=== PATIENT | male | born 1970 | race Caucasian/White ===

== ENCOUNTER → 2018-04-12 10:48 | Outpatient (REF) | payer OTHER, SELFPAY ==
[2018-04-12 14:03] LABS: Amphetamine/Metha Screen,Urine Negative ng/mL (<1000); Barbiturates Screen,Urine Negative ng/mL (<200); Benzodiazepines Screen,Urine Negative ng/mL (<200); Cannabinoid Screen,Urine Positive ng/mL (<50); Cocaine Screen,Urine Negative ng/mL (<300); Methadone Screen,Urine Negative ng/mL (<300); Opiate Screen,Urine Negative ng/mL (<300); Phencyclidine Screen,Urine Negative ng/mL (<25)
== END ==
LOC: LAB 10:48
PROVIDERS: Visit Provider Emergency Medicine
DX: Z79.899 Other long term (current) drug therapy (principal)
CPT/HCPCS: 80305

== ENCOUNTER → 2018-07-11 19:48 | Outpatient (CLI) | payer OTHER, SELFPAY ==
[2018-07-11 22:22] LABS: Amphetamine/Metha Screen,Urine Negative ng/mL (<1000); Barbiturates Screen,Urine Negative ng/mL (<200); Benzodiazepines Screen,Urine Negative ng/mL (<200); Cannabinoid Screen,Urine Negative ng/mL (<50); Cocaine Screen,Urine Negative ng/mL (<300); Methadone Screen,Urine Negative ng/mL (<300); Opiate Screen,Urine Negative ng/mL (<300); Phencyclidine Screen,Urine Negative ng/mL (<25)
== END ==
PROVIDERS: Visit Provider Emergency Medicine
DX: Z79.899 Other long term (current) drug therapy (principal)
CPT/HCPCS: 80305

== ENCOUNTER → 2018-08-08 17:41 | Outpatient (CLI) | payer OTHER, SELFPAY ==
[2018-08-08 21:45] LABS: Amphetamine/Metha Screen,Urine Negative ng/mL (<1000); Barbiturates Screen,Urine Negative ng/mL (<200); Benzodiazepines Screen,Urine Negative ng/mL (<200); Cannabinoid Screen,Urine Negative ng/mL (<50); Cocaine Screen,Urine Negative ng/mL (<300); Methadone Screen,Urine Negative ng/mL (<300); Opiate Screen,Urine Positive ng/mL (<300); Phencyclidine Screen,Urine Negative ng/mL (<25)
== END ==
PROVIDERS: Visit Provider Nurse Practitioner Family
DX: Z79.899 Other long term (current) drug therapy (principal)
CPT/HCPCS: 80305

== ENCOUNTER → 2018-09-08 13:52 | Outpatient (CLI) | payer OTHER, SELFPAY ==
[2018-09-08 15:29] LABS: Amphetamine/Metha Screen,Urine Negative ng/mL (<1000); Barbiturates Screen,Urine Negative ng/mL (<200); Benzodiazepines Screen,Urine Negative ng/mL (<200); Cannabinoid Screen,Urine Negative ng/mL (<50); Cocaine Screen,Urine Negative ng/mL (<300); Methadone Screen,Urine Negative ng/mL (<300); Opiate Screen,Urine Positive ng/mL (<300); Phencyclidine Screen,Urine Negative ng/mL (<25)
== END ==
PROVIDERS: Visit Provider Emergency Medicine
DX: Z79.899 Other long term (current) drug therapy (principal)
CPT/HCPCS: 80305

== ENCOUNTER 2020-01-19 13:30 | Emergency (ER) | payer MEDICAID, SELFPAY ==
[2020-01-19 13:31] VITALS: BP 140/98; PULSE 96; RESP 18; TEMP 36.7; O2SAT 99; BMI 32.5
--- NOTE | 2020-01-19 14:15 | HMH.EDUTC ---
[facility] Disposition Clinical Impression: Dental abscess Disposition: Home, Self-Care Condition on Discharge: Good Instructions: Tooth Abscess, Amoxicillin and Clavulanic Acid Additional Instructions: Use dental balls instructed in [facility] earlier today Take medication as prescribed *Follow up with Dentist as soon as possible for evaluation and treatment of tooth Return if needed Straight to ER if any life threatening symptoms Prescriptions: Ibuprofen [Ibuprofen 800mg Tablet] 800 mg PO Q8HP PRN #20 tab PRN Reason: Moderate Pain Transmission Status: Pending to [facility] Amoxicillin/Potassium Clav [Augmentin 875-125 Tablet] 1 tab PO Q12H 7 Days #14 tab Transmission Status: Pending to [facility] Referrals: Provider,Referral, [Primary Care Provider] - As needed Sridhar Bailey [Referring] - Time of Disposition: 14:20 Medical Decision Making - Ghassan Inquiry Pt receiving controlled substance: No Ghassan was queried for this patient: No Vital Signs: 01/19/20 13:31 Temperature 98.1 F Temperature Source Oral Pulse Rate [Radial] 96 H Respiratory Rate 18 Blood Pressure [Right Arm] 140/98 H Blood Pressure Mean [Right Arm] 112 Blood Pressure Source [Right Arm] Automatic Cuff Blood Pressure Position [Right Arm] Sitting 02 Sat by Pulse Oximetry 99 Oxygen Delivery Method Room Air [facility] HPI - General Stated complaint: lip/face swollen possible dental issue Time Seen by Provider: 01/19/20 14:15 Mode of Arrival: Ambulatory Source of Information: Patient Limitations: No Limitations Description of Symptoms (Recalled from Triage Doc. by RN): Swelling in face with dental pain HEENT Symptoms (Recalled from RN notes): Yes Resp Symptoms (Recalled from RN notes): No Skin Symptoms (Recalled from RN notes): No MS Symptoms (Recalled from RN notes): No Functional Status (Recalled from RN notes): wnl - History of Present Illness Provider Complaint: Patient states that he was in an accident a couple of months ago and broke his tooth States that this morning he woke up with the right side of his face swollen and having pain in that tooth thinks he has an abscess State that he wasnt able to get into the dentist so he came here to get antibiotics - Related Data Previous Rx's Medication Instructions Recorded Albuterol Sulfate [Albuterol HFA 1 - 2 puffs IH Q4-6H PRN #1 inh 07/23/19 Inhaler] Azithromycin [Z-Trevor 250mg Tab*] 250 mg PO UD DOSE PK #6 tab 07/23/19 Benzonatate [Tessalon Perle 100mg 100 mg PO TIDP PRN #30 cap 07/23/19 Cap] methylPREDNISolone [Medrol] 4 mg PO DIRECTED 6 Days #21 07/23/19 tab.ds.pk Amoxicillin/Potassium Clav 1 tab PO Q12H 7 Days #14 tab 01/19/20 [Augmentin 875-125 Tablet] Ibuprofen [Ibuprofen 800mg 800 mg PO Q8HP PRN #20 tab 01/19/20 Tablet] Allergies Allergy/AdvReac Type Severity Reaction Status Date / Time tramadol [TRAMADOL] Allergy Unknown Verified 01/03/19 08:51 - Worker's Comp Is this a Worker's Comp case?: No [facility] History - Hepatitis A Screen Drug use history?: No High risk sexual behaviors?: No History of sexually transmitted infection?: No Currently employed?: No Childcare worker?: No Do you have indoor plumbing?: Yes Do you have electricity?: Yes Attestation statement:: This patient has been screened for Hepatitis A risk factors. I have reviewed the patient's past medical history: Yes Medical History: Reports:: Anxiety, Asthma, Cardiomyopathy, Depression, Gastroesophageal Reflux Disease(GERD), Hyperlipidemia, Hypertension, Ulcer Denies:: Cancer, Diabetes Mellitus Type 1, Diabetes Mellitus Type 2, MRSA Laterality Cases: Bilateral: Arthroscopy Knee, Carpal Tunnel Release, Myringotomy (Ear Tubes), Tonsillectomy Other Surgeries: Yes: Cardiac Catheterization, Other Amputation: No Fractures: No Comment: BACK SURGERY, TUBES IN EARS,KNEE SURGERY,WRIST CARPAL TUNNEL, MRSA RT LEG, HEART CATH - Social History Education
[2020-01-19 14:34] VITALS: BP 140/98; PULSE 96; RESP 18; TEMP 36.7; O2SAT 99
== END 2020-01-19 14:35 | disposition home or self-care (01) ==
PROVIDERS: Emergency Provider Nurse Practitioner
DX: K04.7 Periapical abscess without sinus (principal); F41.8 Other specified anxiety disorders; K21.9 Gastro-esophageal reflux disease without esophagitis; E78.5 Hyperlipidemia, unspecified; I10 Essential (primary) hypertension; I42.8 Other cardiomyopathies; Z88.8 Allergy status to other drugs, medicaments and biological substances; Z79.899 Other long term (current) drug therapy
CPT/HCPCS: 99201

== ENCOUNTER 2020-09-19 18:19 | Emergency (ER) | payer OTHER, SELFPAY ==
[2020-09-19 18:35] VITALS: BP 170/114; PULSE 100; RESP 14; TEMP 36.2; O2SAT 99; BMI 31.1
--- NOTE | 2020-09-19 18:51 | HMH.EDUTC ---
[facility] [place] Clinical Impression: Exposure to COVID-19 virus Asthma exacerbation Qualifiers: Asthma severity: unspecified severity Asthma persistence: unspecified Qualified Code(s): J45.901 - Unspecified asthma with (acute) exacerbation Disposition: Home, Self-Care Condition on Discharge: Good Instructions: DI for Asthma -- Adult, Preventing the Spread of Coronavirus Discharge Instructions Additional Instructions: Drink plenty of fluids. Take tylenol for pain or fever. Return if you begin to have difficulty breathing. Follow up with your regular doctor. GO TO THE ER FOR ANY WORSENING SYMPTOMS Prescriptions: Albuterol Sulfate [Albuterol Sulfate Hfa] 2 puffs IH Q6HP PRN 30 Days #1 hfa.aer.ad PRN Reason: Shortness Of Breath Transmission Status: Received by [facility] predniSONE [Prednisone 20mg Tab] 20 mg PO BID 5 Days #10 tab Transmission Status: Received by [facility] Benzonatate [Tessalon Perle 100mg Cap] 100 mg PO TIDP PRN #30 cap PRN Reason: Cough Transmission Status: Received by [facility] Azithromycin [Z-Trevor 250mg Tab*] 250 mg PO UD DOSE PK #6 tab Transmission Status: Received by [facility] Referrals: Shan Seo [Primary Care Provider] - Time of Disposition: 19:01 Medical Decision Making - Medical Records Medical records reviewed: No: I reviewed the patient's medical records. - Ghassan Inquiry Pt receiving controlled substance: No Vital Signs: 09/19/20 18:35 09/19/20 19:03 Temperature 97.1 F L 97.1 F L Temperature Source Oral Pulse Rate 100 H Pulse Rate [Right Brachial] 100 H Respiratory Rate 14 14 Blood Pressure 170/114 H Blood Pressure [Right Arm] 170/114 H Blood Pressure Mean [Right Arm] 132 Blood Pressure Source [Right Arm] Automatic Cuff Blood Pressure Position [Right Arm] Sitting 02 Sat by Pulse Oximetry 99 Oxygen Delivery Method Room Air Orders (Tests/Meds): ORDERS Category Date Time Status Covid-19 Nasal PCR ([facility]) Routine Lab 09/19/20 18:30 Received [facility]PI - General Stated complaint: Coughing; wants Covid Test Time Seen by Provider: 09/19/20 18:52 - History of Present Illness Provider Complaint: He states that he has been having a cough and chest congestion for the past 3 days. He has also had a scratchy sore throat. He denies any known exposure to covid-19. He denies any fever/chill/body aches. He has a history of asthma, so he is worried about his chest congestion. - Related Data Previous Rx's Medication Instructions Recorded Albuterol Sulfate [Albuterol 2 puffs IH Q6HP PRN 30 Days #1 09/19/20 Sulfate Hfa] hfa.aer.ad Azithromycin [Z-Trevor 250mg Tab*] 250 mg PO UD DOSE PK #6 tab 09/19/20 Benzonatate [Tessalon Perle 100mg 100 mg PO TIDP PRN #30 cap 09/19/20 Cap] predniSONE [Prednisone 20mg 20 mg PO BID 5 Days #10 tab 09/19/20 Tab] Allergies Allergy/AdvReac Type Severity Reaction Status Date / Time tramadol [TRAMADOL] Allergy Unknown Verified 01/03/19 08:51 [facility] History - Hepatitis A Screen Attestation statement:: This patient has been screened for Hepatitis A risk factors. I have reviewed the patient's past medical history: Yes Medical History: Reports:: Anxiety, Asthma, Cardiomyopathy, Depression, Gastroesophageal Reflux Disease(GERD), Hyperlipidemia, Hypertension, Ulcer Denies:: Cancer, Diabetes Mellitus Type 1, Diabetes Mellitus Type 2, MRSA Laterality Cases: Bilateral: Arthroscopy Knee, Carpal Tunnel Release, Myringotomy (Ear Tubes), Tonsillectomy Other Surgeries: Yes: Cardiac Catheterization, Other Amputation: No Fractures: No Comment: BACK SURGERY, TUBES IN EARS,KNEE SURGERY,WRIST CARPAL TUNNEL, MRSA RT LEG, HEART CATH - Social History Smoking Status: Never smoker Tobacco Type: cigarettes Alcohol Intake: never Substance Use Type: denies use Occupational Status: employed - Psychiatric History Pschychiatric H
[2020-09-19 19:03] VITALS: BP 170/114; PULSE 100; RESP 14; TEMP 36.2; O2SAT 99
== END 2020-09-19 19:05 | disposition home or self-care (01) ==
PROVIDERS: Emergency Provider Nurse Practitioner Family; PCP Family Medicine
DX: Z20.822 Contact with and (suspected) exposure to COVID-19 (principal); E78.5 Hyperlipidemia, unspecified; F41.8 Other specified anxiety disorders; I10 Essential (primary) hypertension; K21.9 Gastro-esophageal reflux disease without esophagitis; Z79.899 Other long term (current) drug therapy
CPT/HCPCS: 99202; G0463; U0003

== ENCOUNTER → 2021-09-03 09:35 | Outpatient (CLI) | payer OTHER, SELFPAY | PROVIDERS: PCP Emergency Medicine; Visit Provider Nurse Practitioner | DX: Z20.822 Contact with and (suspected) exposure to COVID-19 (principal) | CPT/HCPCS: C9803; U0003; U0005 ==

== ENCOUNTER → 2021-09-04 19:16 | Outpatient (CLI) | payer OTHER, SELFPAY ==
[2021-09-04 19:17] LABS: Adenovirus,PCR Not Detected (NotDetected); Bordetella Pertussis Not Detected (NotDetected); Chlamydophila Pneumoniae, PCR Not Detected (NotDetected); Coronavirus 19, PCR Not Detected (NotDetected); Coronavirus 229E Not Detected (NotDetected); Coronavirus NL63 Not Detected (NotDetected); Coronavirus OC43 Not Detected (NotDetected); Coronovirus HKU1,PCR Not Detected (NotDetected); Human Metapneumovirus Not Detected (NotDetected); Influenza A, PCR Not Detected (NotDetected); Influenza AH1, 2009 Not Detected (NotDetected); Influenza AH1, PCR Not Detected (NotDetected); Influenza AH3,PCR Not Detected (NotDetected); Influenza B, PCR Not Detected (NotDetected); Mycoplasma Pneumoniae, PCR Not Detected (NotDetected); Parainfluenza 1, PCR Not Detected (NotDetected); Parainfluenza 2, PCR Not Detected (NotDetected); Parainfluenza 3, PCR Not Detected (NotDetected); Parainfluenza 4, PCR Not Detected (NotDetected); Respiratory Syncytial Virus Not Detected (NotDetected); Rhinovirus/Enterovirus Not Detected (NotDetected)
== END ==
PROVIDERS: Visit Provider Nurse Practitioner Family
DX: Z20.822 Contact with and (suspected) exposure to COVID-19 (principal); J02.9 Acute pharyngitis, unspecified
CPT/HCPCS: 87581; 87632; 87798; C9803; U0003; U0005

== ENCOUNTER 2021-12-17 08:19 | Emergency (ER) | payer OTHER, SELFPAY ==
--- NOTE | 2021-12-17 08:18 | ECG_ITS ---
APPROVED REPORT Exam: Resting ECG HR:87 bpm ECG Measurements Heart Rate 87 AXES MT 153 P 52 QRSd 119 QRS -3 QT 380 T 2 QTc 424 Conclusion SINUS RHYTHM INCOMPLETE RIGHT BUNDLE BRANCH BLOCK [90+ ms QRS DURATION, TERMINAL R IN V1/V2, 40+ ms S IN I/aVL/V4/V5/V6] POSSIBLE LEFT VENTRICULAR HYPERTROPHY [VOLTAGE CRITERIA PLUS LAE OR QRS WIDENING] MINIMAL ST DEPRESSION [0.025+ mV ST DEPRESSION] ABNORMAL ECG UNCONFIRMED REPORT Electronically signed by : Ruben Killian MD 12/18/2021 08:11:05
[2021-12-17 08:20] VITALS: BP 162/110; PULSE 92; RESP 20; TEMP 36.4; O2SAT 98; BMI 29.5
--- NOTE | 2021-12-17 08:22 | PC.NURSE ---
OLIVA Ashby at
[2021-12-17 08:28] VITALS: BP 133/96; BP 155/108; PULSE 103; PULSE 94
--- NOTE | 2021-12-17 08:28 | XR_ITS ---
FINAL REPORT CLINICAL HISTORY: CHEST PAIN COMPARISON: July 23, 2019 FINDINGS: The heart size is normal. The mediastinum is normal. There is a loop recorder device. There are mild chronic changes in the lung bases. There are no pleural effusions. There is no pneumothorax. There is no osseous abnormality. IMPRESSION: No acute cardiopulmonary process Reviewed, Interpreted and Dictated by Baldomero Wright MD Transcribed by Kiko Hoyos Authenticated by Baldomero Wright MD on 12/17/2021 09:33:12 AM [facility]
--- NOTE | 2021-12-17 08:28 | PC.NURSE ---
ED MD at
--- NOTE | 2021-12-17 08:31 | HMH.EDCP ---
ED Disposition Clinical Impression: Atypical chest pain Disposition: Home, Self-Care Condition on Discharge: Good Instructions: DI for Atypical Chest Pain Additional Instructions: follow up cardiology and PCP, return here for any worseing condition Referrals: Provider,Kori, [Primary Care Provider] - Franky Cowan MD [Staff Physician] - Lito Allen MD [Staff Physician] - - Critical Care Critical Care Time: No Attestation: On 12/17/21, the high probability of a clinically significant, sudden or life threatening deterioration of the following system(s) required my full and direct attention, intervention and personal management. The time I documented below is in addition to time spent performing reported procedures but includes the following listed in this critical care notation. Medical Decision Making - Medical Records Medical records reviewed: Yes: I reviewed the patient's medical records. - Ghassan Inquiry Pt receiving controlled substance: No Vital Signs: 12/17/21 08:20 12/17/21 08:28 12/17/21 09:09 Temperature 97.6 F Temperature Source Oral Pulse Rate 74 Pulse Rate [Orthostatic Lying] 94 H Pulse Rate [Orthostatic Standing] 103 H Pulse Rate [Radial] 92 H Respiratory Rate 20 14 Blood Pressure 147/92 H Blood Pressure [Orthostatic Lying] 155/108 H Blood Pressure [Orthostatic Standing] 133/96 H Blood Pressure [Right Arm] 162/110 H Blood Pressure Mean [Right Arm] 127 Blood Pressure Source Blood Pressure Position Blood Pressure Position [Right Arm] Sitting 02 Sat by Pulse Oximetry 98 97 Oxygen Delivery Method Room Air Room Air 12/17/21 10:08 12/17/21 10:42 12/17/21 11:49 Temperature 98 F Temperature Source Oral Pulse Rate 76 63 78 Pulse Rate [Orthostatic Lying] Pulse Rate [Orthostatic Standing] Pulse Rate [Radial] Respiratory Rate 14 14 16 Blood Pressure 139/99 H 155/97 H 150/100 H Blood Pressure [Orthostatic Lying] Blood Pressure [Orthostatic Standing] Blood Pressure [Right Arm] Blood Pressure Mean [Right Arm] Blood Pressure Source Automatic Cuff Automatic Cuff Blood Pressure Position Sitting Sitting Blood Pressure Position [Right Arm] 02 Sat by Pulse Oximetry 93 L 98 Oxygen Delivery Method Room Air Room Air Room Air - Lab Data Lab Results 12/17/21 08:26: WBC 7.9, RBC 5.02, Hgb 15.2, Hct 43.4, MCV 86.5, MCH 30.3, MCHC 35.0, RDW 12.5, Plt Count 277, MPV 11.5 H, Neut % (Auto) 59.7, Lymph % (Auto) 27.0, Gosper % (Auto) 9.5 H, Eos % (Auto) 2.7, Baso % (Auto) 0.8, Neut # (Auto) 4.7, Lymph # (Auto) 2.1, Gosper # (Auto) 0.8, Eos # (Auto) 0.2, Baso # (Auto) 0.1 12/17/21 08:26: Sodium 134 L, Potassium 3.5, Chloride 101, Carbon Dioxide 24, Anion Gap 12.5, BUN 19, Creatinine 1.10, Estimated Creat Clear 112, Estimated GFR 71, Est GFR ( Amer) 86, Glucose 123 H, Calcium 9.7, Troponin I < 0.01 12/17/21 10:32: Troponin I < 0.01 Result diagrams: 12/17/21 08:26 12/17/21 08:26 Orders (Tests/Meds): ED MEDICATIONS Discontinued Medications Generic Name Dose Route Start Last Admin Trade Name Markq PRN Reason Stop Dose Admin Aspirin 324 mg 12/17/21 08:31 12/17/21 08:41 Aspirin 81mg Chewable Tablet PO 12/17/21 08:32 324 mg ONCE ONE Administration Lactated Ringer's 1,000 mls @ 999 mls/hr 12/17/21 08:30 12/17/21 08:39 Lactated Ringer's 1000 Ml Bag IV 12/17/21 09:30 999 mls/hr .Q1H1M JASON Administration - ECG Data Tracing #1 I reviewed this ECG and interpreted as documented below: ekg by me nsr, irbbb, poss lvh, non spec st changes Medical Decision Narrative: 1141am reeval appears well, no cp here, ok wit plan to f/.u cardiology and pcp Chest Pain HPI - General Chief Complaint: Chest Pain Stated Complaint: CP/dizziness Time Seen by Provider: 12/17/21 09:00 Mode of Arrival: Ambulatory Limitations: No Limitations Description of Symptoms (Recalled from ER Triage Doc. by RN): TO E
--- NOTE | 2021-12-17 08:35 | PC.NURSE ---
Notified radiology of chest xray
--- NOTE | 2021-12-17 08:42 | PC.NURSE ---
OLIVA Ashby at
--- NOTE | 2021-12-17 09:00 | PC.NURSE ---
per lab staff pt cbc has to be sent out for analysis r/t our analyzer is down, results will be delayed. YAMILETH ENRIQUEZ has been notified
[2021-12-17 09:08] LABS: Chloride 101 mmol/L (98-107); Potassium 3.5 mmoL/L (3.5-5.1); Sodium 134 mmol/L (136-145)
[2021-12-17 09:09] VITALS: BP 147/92; PULSE 74; RESP 14; O2SAT 97
[2021-12-17 09:11] LABS: Anion Gap 12.5 mEq/L (5-15); Blood Urea Nitrogen 19 mg/dl (9-20); Calcium 9.7 mg/dl (8.4-10.2); Carbon Dioxide 24 mmol/L (22.0-30.0); Creatinine Clearance Estimated 112 mL/min (50-200); Estimated Glomerular Filt Rate 71 ml/min (>60); GFR (African American) 86 ML/MIN (>60); Glucose 123 mg/dl (74-100)
[2021-12-17 09:26] LABS: Troponin I < 0.01 ng/ml (0.00-0.034)
--- NOTE | 2021-12-17 09:43 | PC.NURSE ---
Dr. Naik reports he wants patient to have 2 hour troponin
[2021-12-17 10:08] VITALS: BP 139/99; PULSE 76; RESP 14; O2SAT 93
--- NOTE | 2021-12-17 10:08 | PC.NURSE ---
patient is resting at this time; no needs
--- NOTE | 2021-12-17 10:34 | PC.NURSE ---
2nd troponin sent to lab
[2021-12-17 10:42] VITALS: BP 155/97; PULSE 63; RESP 14; O2SAT 98
--- NOTE | 2021-12-17 11:19 | PC.NURSE ---
Contacting lab regarding patients 2nd troponin result; spoke with Jazmyn and she states they are just now running the specimen
[2021-12-17 11:32] LABS: Hematocrit 43.4 % (42.0-52.0); Hemoglobin 15.2 g/dL (14.1-18.0); Mean Corpuscular Volume 86.5 fl (80-94); Red Blood Count 5.02 M/mm3 (4.60-6.20)
[2021-12-17 11:33] LABS: Basophils # 0.1 K/mm3 (0-0.2); Basophils % 0.8 % (0.1-2.0); Eosinophils # 0.2 K/mm3 (0.0-0.4); Eosinophils % 2.7 % (0.1-12.0); Lymphocytes # 2.1 K/mm3 (0.7-4.5); Mean Corpuscular Hemoglobin 30.3 pg (27.0-31.2); Mean Platelet Volume 11.5 fl (7.4-10.4); Monocytes # 0.8 K/mm3 (0.1-1.0); Monocytes % 9.5 % (1.7-9.3); Neutrophils # 4.7 K/mm3 (1.8-7.8); Neutrophils % 59.7 % (37.0-80.0); Platelet Count 277 K/mm3 (142-424); Red Cell Distribution Width 12.5 % (11.5-17.5)
[2021-12-17 11:34] LABS: White Blood Count 7.9 K/mm3 (4.8-10.8)
--- NOTE | 2021-12-17 11:34 | PC.NURSE ---
mitzi in lab states waiting on a corrected report from [facility] on pts cbc, states they were sent a report with incorrect on it for pt.
[2021-12-17 11:38] LABS: Troponin I < 0.01 ng/ml (0.00-0.034)
--- NOTE | 2021-12-17 11:39 | PC.NURSE ---
ED MD at speaking with patient on update of POC
[2021-12-17 11:49] VITALS: BP 150/100; PULSE 78; RESP 16; TEMP 36.6; O2SAT 98
== END 2021-12-17 11:51 | disposition home or self-care (01) ==
PROVIDERS: Emergency Provider Emergency Medicine
DX: R07.89 Other chest pain (principal); R42 Dizziness and giddiness; M79.602 Pain in left arm; R06.02 Shortness of breath; R61 Generalized hyperhidrosis; R11.0 Nausea; I10 Essential (primary) hypertension; K21.9 Gastro-esophageal reflux disease without esophagitis; E78.5 Hyperlipidemia, unspecified; L98.499 Non-pressure chronic ulcer of skin of other sites with unspecified severity; J45.909 Unspecified asthma, uncomplicated; F32.A Depression, unspecified; F41.9 Anxiety disorder, unspecified; Z79.51 Long term (current) use of inhaled steroids; Z88.6 Allergy status to analgesic agent; Z82.49 Family history of ischemic heart disease and other diseases of the circulatory system; Z83.438 Family history of other disorder of lipoprotein metabolism and other lipidemia
CPT/HCPCS: 71045; 80048; 84484; 85025; 93005; 99285

== ENCOUNTER 2025-05-09 07:03 | Observation (INO) | payer OTHER, SELFPAY ==
[2025-05-09] VITALS (43 sets, daily range): BP systolic 82–157; BP diastolic 65–109; PULSE 53–195; RESP 10–27; TEMP 36.7–37; O2SAT 92–100; BMI 32.5; BMI 32.7
--- NOTE | 2025-05-09 07:01 | ECG_ITS ---
APPROVED REPORT Exam: Resting ECG HR:198 bpm ECG Measurements Heart Rate 198 AXES QRSd 115 QRS -24 QT 226 T 94 QTc 325 Conclusion ATRIAL FLUTTER/TACHYCARDIA WITH RAPID VENTRICULAR RESPONSE BORDERLINE LEFT AXIS DEVIATION [QRS AXIS < -20] INCOMPLETE RIGHT BUNDLE BRANCH BLOCK [90+ ms QRS DURATION, TERMINAL R IN V1/V2, 40+ ms S IN I/aVL/V4/V5/V6] NONSPECIFIC ST & T-WAVE ABNORMALITY CRITICAL TEST RESULT INTERPRETATION BASED ON A DEFAULT AGE OF 40 YEARS Electronically signed by : ROSENDA GRIER, 05/12/2025 08:38:55
[2025-05-09] MEDS: ADENOSINE 6MG/2ML VIAL 6 MG IV (07:07)
[2025-05-09] MEDS: ADENOSINE 6MG/2ML VIAL 12 MG IV (07:13)
--- NOTE | 2025-05-09 07:22 | CT_ITS ---
FINAL REPORT TECHNIQUE: Thin section axial CT with contrast with multiplanar reconstruction This study was performed with techniques to keep radiation doses as low as reasonably achievable, (ALARA). Individualized dose reduction techniques using automated exposure control or adjustment of mA and/or kV according to the patient''s size were employed. CLINICAL HISTORY: chest pain with a heart rate of 200 COMPARISON: none FINDINGS: Pulmonary vessels enhance in normal fashion without evidence of embolism. Thoracic aorta is adequately opacified to evaluate for dissection but there is no evidence of aneurysm. No pulmonary mass or infiltrate is present. No evidence of pneumonia. There is no significant pleural effusion. There is no significant pericardial effusion. Mild scattered adenopathy. There are mildly enlarged lymph nodes seen in the prevascular space and subcarinal region. IMPRESSION: No evidence of pulmonary embolism. No acute lung disease. Mild nonspecific adenopathy. Reviewed, Interpreted and Dictated by Asher Urbina MD Transcribed by Silvina Gonzalez Authenticated and . [facility]
--- OUTSIDE RECORDS SUMMARY | 2025-05-09 07:24 | XMS_ITS | Clinical Summary ---
Author Organization Healthcare Address [address] [place] [address] Care Team Providers Care Curriculum Developer Name Role Phone Jan Lara MD Primary Care Provider + [phone] Family History Medical History Relation Name Comments Other cancer Other 1 Heart Problem Other 2 Relation Name Status Comments Other 1 Other 2 Social History Tobacco Use Types Packs/Day Years Used Date Smoking Tobacco: Never Sex and Gender Information Value Date Recorded Sex Assigned at Not on file Legal Sex Male 7:36 PM EDT Gender Identity Not on file Sexual Orientation Not on file Last Filed Vital Signs Vital Sign Reading Time Taken Comments Blood Pressure - - Pulse - - Temperature - - Respiratory Rate - - Oxygen Saturation - - Inhaled Oxygen Concentration - - Weight 113 kg (250 lb) 01/26/2016 2:15 PM EDT Height 180.3 cm (5' 11 ) 01/26/2016 2:15 PM EDT Body Mass Index 34.87 01/26/2016 2:15 PM EDT Plan of Treatment Not on file Care Teams Curriculum Developer Relationship Specialty Start Date End Date Jan Lara MD [address] [place] [address] PCP - General 01/02/21
--- NOTE | 2025-05-09 07:26 | ED_ITS ---
Discharge Plan Disposition Patient Disposition: Admitted Prescriptions Prescriptions: No Action azithromycin 250 mg tablet 250 mg PO QDAY 5 Days Qty: 6 0RF Rx Instructions: ii tabs day one and i tab days 2-5 albuterol sulfate 90 mcg/actuation HFA aerosol inhaler 2 puff INHALATION Q6H PRN (Reason: resp infection) 10 Days Qty: 6.7 0RF Rx Instructions: administer with spacer benzonatate 200 mg capsule 200 mg PO TID PRN (Reason: cough) 7 Days Qty: 21 0RF Referrals Follow up/Referrals: Provider,Referral, MD [Primary Care Provider, Medical] - See instructions Clinical Impressions Clinical Impression: Atrial fibrillation with RVR, Adenopathy, Elevated troponin Print Language Print Language: Maltese Discharge ED Provider: Savage Perrin HPI General Chief Complaint: Chest Pain Stated Complaint: chest pain Time Seen by Provider: 05/09/25 07:03 Mode of Arrival: Ambulatory Source of Information: Patient Description of Symptoms (Recalled from ER Triage Doc. by RN): Pt reports CP and dizziness for approx 2 days. Pt rates pain 6/10 and states it gets worse when he takes a deep breathe. History of Present Illness HPI narrative: Patient is a 54-year-old male with past medical history of loop recorder but does not have any stents does not take any medications at baseline smokes marijuana no other illicit substances who presents emergency department for evaluation of chest pain and dizziness. Onset was acute, right-sided, occurring 3 days ago, persistent, nonmodifiable, intermittently associated with sweating. No other acute complaints at this time no trauma. Please note that above description of symptoms, in this electronic medical record under categorization of recalled from ER triage doctor by RN are reflective of an initial nursing assessment, however, is not reflective of my full history and physical exam that was personally taken and clarified. Consequentially, this preceding description of symptoms, which may include the patient's categorized chief complaint in the EMR, do not reflect my personal clinical impression, and the ultimate description of history of present illness and patient stated complaints should be deferred to this section of the note. Unless stated otherwise or congruent with this section of the note, additional signs, symptoms, or incongruence should be interpreted as inaccurate with my clinical impression. Related Data Previous Rx's ?Medication ?Instructions ?Recorded albuterol sulfate 90 mcg/actuation 2 puff inhalation Q 6H PRN resp 09/04/21 aerosol inhaler infection 10 days #6.7 grams azithromycin 250 mg tablet 250 mg PO QDAY resp infecti on 5 09/04/21 days #6 tabs benzonatate 200 mg capsule 200 mg PO TID PRN cough 7 d ays #21 09/04/21 caps Allergies Allergy/AdvReac Type Severity Reaction Status Date / Time tramadol (TRAMADOL) Allergy Unknown Verified 09/04/21 11:31 [facility] Disclaimer: The information contained in this section may have been updated after the patient was seen, as this information can be updated by other users. Social History Smoking Status: Smoker, status unknown tobacco type: cigarettes alcohol intake: never substance use type: denies use current occupational status: other Travel in the last 8 weeks?: None Have you lived/traveled outside US in past 30 days?: No Contact w/someone who lives/traveled outside US past 30 days?: No Exposure to someone with infectious disease in past 14 days?: No Do you have a fever (greater than 100.4 F or 38 C)?: No Have you tested positive for COVID-19?: No Exposed to someone with COVID-19 in past 14 days?: No Do you have a sore throat?: No Do you have a cough?: No Do you have any weakness?: No Do you have any diarrhea?: No Are you experiencing any unusual bleeding?: No Do you have any muscle aches/pain?: No Do you have any abdominal pain?: No Are you experiencing loss of taste or smell?: No Other Medical History Have you received the Flu Vaccine for this season: No Have you received the Pneumonia Vaccine: No ROS Obtained: Yes Systems reviewed as appropriate & no additional complaints except as documented Physical Exam General General appearance: alert and in no apparent distress Head Head exam: atraumatic and normocephalic Eye Eye exam: Present PERRL and EOMI ENT ENT exam: Present mucous membranes moist Neck Neck exam: Present normal inspection Chest Chest inspection: Present normal inspection and symmetric chest wall rise Respiratory Respiratory exam: Present normal lung sounds bilaterally; Absent respiratory distress Cardiovascular Cardiovascular exam: Present tachycardia and irregular rhythm Abdominal Exam Abdominal exam: Present soft; Absent tenderness Extremities Exam Extremities exam: Present normal inspection Neurological Exam Neurological exam: Present alert and CN II-XII intact Psychiatric Psychiatric exam: Present normal affect Skin Skin exam: Present warm and dry HEART Score HEART Score HEART Score assessment performed?: Yes History (anamnesis): Moderately suspicious ECG: Significant ST-deviation Age: 45-65 years Risk factors: 1-2 risk factors Troponin: 1-3x normal limit HEART Score: 6 Critical Care Critical Care Time Critical Care Time: Yes Attestation: On 05/09/25, the high probability of a clinically significant, sudden or life threatening deterioration of the following system(s) required my full and direct attention, intervention and personal management. The time I documented below is in addition to time spent performing reported procedures but includes the following listed in this critical care notation. Total Time Total Critical Care Time: 40 Medical Decision Making Ghassan Inquiry Pt receiving controlled substance: No Vital Signs Vital Signs: 05/09/25 07:04 05/09/25 07:45 05/09/25 08:01 Temperature 98.6 F Temperature Source Oral Pulse Rate 155 H 182 H Pulse Rate [Left] 195 H Respiratory Rate 18 11 L 11 L Blood Pressure 127/109 H 82/65 L Blood Pressure [Right Arm] 157/94 H Blood Pressure Mean [Right Arm] 115 Blood Pressure Source [Right Arm] Automatic Cuff Blood Pressure Position [Right Arm] Sitting 02 Sat by Pulse Oximetry 100 96 99 Oxygen Delivery Method Room Air 05/09/25 08:03 Temperature Temperature Source Pulse Rate 192 H Pulse Rate [Left] Respiratory Rate 10 L Blood Pressure 97/76 L Blood Pressure [Right Arm] Blood Pressure Mean [Right Arm] Blood Pressure Source [Right Arm] Blood Pressure Position [Right Arm] 02 Sat by Pulse Oximetry 99 Oxygen Delivery Method Lab Data Labs: Lab Results 05/09/25 07:07: WBC 12.9 H, RBC 4.85, Hgb 14.5, Hct 43.8, MCV 90.3, MCH 29.9, MCHC 33.1, RDW 12.9, Plt Count 293, MPV 11.6 H, Neut % (Auto) 69.6, Lymph % (Auto) 21.7, [place] % (Auto) 6.6, Eos % (Auto) 0.8, Baso % (Auto) 0.7, Neut # (Auto) 9.0 H, Lymph # (Auto) 2.8, [place] # (Auto) 0.9, Eos # (Auto) 0.1, Baso # (Auto) 0.1, Sodium 134 L, Potassium 3.5, Chloride 96 L, Carbon Dioxide 25, Anion Gap 16.5 H, BUN 16, Creatinine 1.40 H, Estimated Creat Clear 94, Estimated GFR 53 L, Est GFR ( Amer) 64, Glucose 137 H, Calcium 9.5, Magnesium 2.0, T otal Bilirubin 1.8 H, AST 125 H, ALT 136 H, Alkaline Phosphatase 71, Troponin I 0.09 H, Total Protein 8.4 H, Albumin 4.7, Globulin 3.7 H, Albumin/Globulin Ratio 1.3, Lipase 35, TSH 2.82, Plasma/Serum Alcohol < 10 05/09/25 07:07 05/09/25 07:07 Response Orders (Tests/Meds): ED MEDICATIONS Generic Name Dose Route Start Last Admin Trade Name Markq PRN Reason Stop Dose Admin Enoxaparin Sodium 110 mg 05/09/25 07:45 05/09/25 07:53 Enoxaparin 120mg/0.8ml Syringe SUBCUT 06/08/25 07:44 110 mg Q12H JASON Administration Diltiazem HCl 100 mg/ Sodium 100 mls @ 5 mls/hr 05/09/25 07:25 05/09/25 08:23 Chloride IV 06/08/25 07:24 15 mg/hr .Q20H JASON 15 mls/hr Protocol Titration 5 MG/HR Sodium Chloride 10 ml 05/09/25 07:44 Sodium Chloride 0.9% 10ml Syr (Rad Only) IV 06/08/25 07:43 NEEDED PRN Maintain IV Site Discontinued Medications Generic Name Dose Route Start Last Admin Trade Name Markq PRN Reason Stop Dose Admin Adenosine 6 mg 05/09/25 07:19 05/09/25 07:07 Adenosine 6mg/2ml Vial IV 05/09/25 07:20 6 mg ONCE ONE Administration Adenosine 12 mg 05/09/25 07:19 05/09/25 07:13 Adenosine 6mg/2ml Vial IV 05/09/25 07:20 12 mg ONCE ONE Administration Aspirin 324 mg 05/09/25 07:22 05/09/25 08:03 Aspirin 81mg Chewable Tablet PO 05/09/25 07:23 324 mg ONCE ONE Administration Diltiazem HCl 20 mg 05/09/25 07:22 05/09/25 07:22 Diltiazem 25mg/5ml Vial IV 05/09/25 07:23 20 mg ONCE ONE Administration Iopamidol 80 ml 05/09/25 07:44 05/09/25 07:45 Iopamidol-370 (76%);100ml Bottle IV 05/09/25 07:45 80 ml ONCE ONE Administration Sodium Chloride 10 ml 05/09/25 07:44 05/09/25 07:45 0.9 % Sodium Chloride 50 Ml Vial IV 05/09/25 07:45 10 ml ONCE ONE Administration ORDERS Category Date Time Status CT angio chest PE protocol Stat Cat Scan 05/09/25 07:22 Completed CBC w/Auto Diff [Complete Blood Count Auto Diff] Stat Lab 05/09/25 07:07 Completed CMP [Comprehensive Metabolic Panel] Stat Lab 05/09/25 07:07 Completed Drug Screen,Urine Stat Lab 05/09/25 07:23 Ordered Ethanol [Ethyl Alcohol] Stat Lab 05/09/25 07:07 Completed Free T4 (Free Thyroxine) Stat Lab 05/09/25 07:07 Received HIV Combo Stat Lab 05/09/25 07:07 Received Hepatitis C Ab Qual. W/ RFX Stat Lab 05/09/25 07:07 Received Lipase Stat Lab 05/09/25 07:07 Completed MG [Magnesium] Stat Lab 05/09/25 07:07 Completed TSH [Thyroid Stimulating Hormone] Stat Lab 05/09/25 07:07 Completed Trop I [Troponin I] Stat Lab 05/09/25 07:07 Completed Troponin I Q3H Lab 05/09/25 10:30 Ordered Troponin I Q3H Lab 05/09/25 13:30 Ordered ECG Data Tracing #1: ECG Narrative: Independently interpreted by me rate is 198, rhythm is largely regular, axis is borderline, no ST elevation in anatomical contiguous leads slight ST depression in the lateral leads without reciprocal change, QTc 325. Differential includes SVT versus atrial fibrillation/flutter with tachycardia MDM Narrative Medical Decision Narrative: In summary patient is a 54-year-old male past medical history of scrota above presents emergency department for evaluation of chest pain. Patient is hemodynamically tenuous upon arrival with a heart rate tween 202 20 bpm it is difficult to tell if it is irregular regular given the rate differential includes A-fib/a flutter with RVR versus SVT. Vagal maneuvers were attempted by blowing through a straw with bilateral leg raise that were unsuccessful. 6 mg of adenosine followed by 12 mg of adenosine with continuous EKG was administered and was tolerated well. It appears that patient is in A-fib/a flutter with RVR after discussion with Dr. Cowan. Given the duration of symptoms we will not cardiovert unless become hemodynamically unstable given the risk of clot. Differential includes primary cardiac conduction problem, metabolic abnormality, atypical ACS, pulmonary embolism, among others. Empiric anticoagulation will be initiated with 1 mg/kg of Lovenox. Crystalloid bolus will be administered. Patient will go to CT scanner now for pulmonary embolism protocol. Diltiazem 20 mg bolus will be administered after discussion with Dr. Cowan. CTA chest informally visualized by me no saddle or proximal PE. Formal read shows no acute pathology nonspecific adenopathy. Blood pressure soft and after initial diltiazem push however I suspect this is due to impaired diastolic filling we will rapidly uptitrate the drip. After uptitrating drip heart rate began to be in the 150s with improved blood pressures. Maxed out on diltiazem at this time I discussed case with Dr. Cowan again we will initiate esmolol. Case discussed hospital medicine guarded management will meet the patient to their service for continued evaluation at this time.
[2025-05-09 07:28] LABS: Hematocrit 43.8 % (42.0-52.0); Hemoglobin 14.5 g/dL (14.1-18.0); Immature Granulocytes % 0.6 %; Mean Corpuscular HGB Conc 33.1 g/dL (31.8-35.4); Mean Corpuscular Hemoglobin 29.9 pg (27.0-31.2); Mean Corpuscular Volume 90.3 fl (80-94); Nucleated Red Blood Cells % 0 %; Platelet Count 293 K/mm3 (142-424); Red Blood Count 4.85 M/mm3 (4.60-6.20); Red Cell Distribution Width-SD 42.6 fL; White Blood Count 12.9 K/mm3 (4.8-10.8)
[2025-05-09 07:35] LABS: Magnesium 2.0 mg/dl (1.6-2.3)
[2025-05-09 07:36] LABS: Alanine Aminotransferase 136 U/L (12-78); Albumin Level 4.7 g/dl (3.5-5.0); Albumin/Globulin Ratio 1.3 (1.1-1.8); Alkaline Phosphatase 71 U/L (38-126); Anion Gap 16.5 mEq/L (5-15); Aspartate Amino Transferase 125 U/L (17-59); Bilirubin,Total 1.8 mg/dl (0.2-1.3); Blood Urea Nitrogen 16 mg/dl (9-20); Calcium 9.5 mg/dl (8.4-10.2); Carbon Dioxide 25 mmol/L (22.0-30.0); Chloride 96 mmol/L (98-107); Creatinine Clearance Estimated 94 mL/min (50-200); Creatinine,Serum 1.40 mg/dl (0.66-1.25); Estimated Glomerular Filt Rate 53 ml/min (>60); GFR (African American) 64 ML/MIN (>60); Globulin 3.7 g/dL (1.3-3.2); Glucose 137 mg/dl (74-100); Lipase 35 U/L (23-300); Potassium 3.5 mmoL/L (3.5-5.1); Sodium 134 mmol/L (136-145); Total Protein,Serum 8.4 g/dl (6.3-8.2)
[2025-05-09] MEDS: 0.9 % SODIUM CHLORIDE 50 ML VIAL 10 ML IV (07:45)
[2025-05-09] MEDS: IOPAMIDOL-370 (76%);100ML BOTTLE 80 ML IV (07:45)
[2025-05-09 07:48] LABS: Troponin I 0.09 ng/ml (0.00-0.034)
[2025-05-09] MEDS: ENOXAPARIN 120MG/0.8ML SYRINGE 110 MG SUBCUT ×2 (07:53→20:06)
[2025-05-09] MEDS: ASPIRIN 81MG CHEWABLE TABLET 324 MG PO (08:03)
[2025-05-09 08:07] LABS: Thyroid Stimulating Hormone 2.82 uIU/mL (0.465-4.68)
--- NOTE | 2025-05-09 08:25 | PC.NURSE ---
on phone with lyndsey
--- NOTE | 2025-05-09 08:29 | PC.NURSE ---
I notified HS of the need for a bed to admit to the hospitalist for a fib RVR going to the ICU
--- NOTE | 2025-05-09 08:35 | EXP.HP ---
History of Present Illness *Admission Date: 05/09/25 *Reason for visit:: Dyspnea, heart racing *History of present illness: Mr. Hilliard is a 54 yo M with HTN, obesity, who presents with chest pain and dizziness for ~2 days. Pt rates pain 6/10 and states it gets worse when he takes a deep breathe. On arrival, was found to be tachyarrhythmic. Heart rate was in the 200s. Also had onset of some right sided chest discomfort. Pain not better or worse with exertion. Having sweating as well. [place] short of breath but no oxygen requirement. Initial concern for SVT. Was administered adenosine 6 and then 12. Heart rate showed A-fib/a flutter with RVR. Was started on diltiazem drip. Cardiology consulted, recommended adding esmolol. Initial troponin 0.09. Creatinine 1.4. Medicine consulted for admission and further management of new onset A-fib with RVR. Admitted to stepdown for further care On my evaluation, patient is in mild distress. Heart rate doing better in the low 100s. States his chest feels somewhat better and does not have the same pressure. [facility] Disclaimer: The information contained in this section may have been updated after the patient was seen, as this information can be updated by other users. Medical History History of back pain Family History Other No significant family history Social History Smoking Status: Smoker, status unknown tobacco type: cigarettes alcohol intake: never substance use type: denies use current occupational status: other Travel in the last 8 weeks?: None Have you lived/traveled outside US in past 30 days?: No Contact w/someone who lives/traveled outside US past 30 days?: No Exposure to someone with infectious disease in past 14 days?: No Do you have a fever (greater than 100.4 F or 38 C)?: No Have you tested positive for COVID-19?: No Exposed to someone with COVID-19 in past 14 days?: No Do you have a sore throat?: No Do you have a cough?: No Do you have any weakness?: No Do you have any diarrhea?: No Are you experiencing any unusual bleeding?: No Do you have any muscle aches/pain?: No Do you have any abdominal pain?: No Are you experiencing loss of taste or smell?: No Other Medical History Have you received the Flu Vaccine for this season: No Have you received the Pneumonia Vaccine: No Review of Systems Review of Systems Review of systems (narrative): 14 point review of systems performed, pertinent positives and negatives as per [facility] Meds Home Medications and Allergies Home Medications ?Medication ?Instructions ?Recorded ?Confirmed ?Type No Known Home Medications 05/09/25 05/09/25 History New Prescriptions to Start Prescriptions: Allergies Allergy/AdvReac Type Severity Reaction Status Date / Time tramadol (TRAMADOL) Allergy Unknown Hives Verified 05/09/25 09:31 Exam Data for Last 24 hours Vital signs and Labs for Last 24 Hours: Temp Pulse Resp BP Pulse Ox O2 Del Method 98.6 F 192 H 10 L 97/76 L 99 Room Air 05/09/25 07:04 05/09/25 08:03 05/09/25 08:03 05/09/25 08:03 05/09/25 08:03 05/09/25 07:04 Laboratory Results - last 24 hr 05/09/25 07:07: WBC 12.9 H, RBC 4.85, Hgb 14.5, Hct 43.8, MCV 90.3, MCH 29.9, MCHC 33.1, RDW 12.9, Plt Count 293, MPV 11.6 H, Neut % (Auto) 69.6, Lymph % (Auto) 21.7, [place] % (Auto) 6.6, Eos % (Auto) 0.8, Baso % (Auto) 0.7, Neut # (Auto) 9.0 H, Lymph # (Auto) 2.8, [place] # (Auto) 0.9, Eos # (Auto) 0.1, Baso # (Auto) 0.1, Sodium 134 L, Potassium 3.5, Chloride 96 L, Carbon Dioxide 25, Anion Gap 16.5 H, BUN 16, Creatinine 1.40 H, Estimated Creat Clear 94, Estimated GFR 53 L, Est GFR ( Amer) 64, Glucose 137 H, Calcium 9.5, Magnesium 2.0, Total Bilirubin 1.8 H, AST 125 H, ALT 136 H, Alkaline Phosphatase 71, Troponin I 0.09 H, Total Protein 8.4 H, Albumin 4.7, Globulin 3.7 H, Albumin/Globulin Ratio 1.3, Lipase 35, TSH 2.82, Plasma/Serum Alcohol < 10 I & O for Last 24 hours: Intake & Output 05/06/25 05/07/25 05/08/25 05/09/25 23:59 23:59 23:59 23:59 Intake Total 2.833 / 2.833 Balance 2.833 / 2.833 Weight 108.862 kg Constitutional Constitutional: mild distress, obese, chronically ill appearing and cooperative *Routine HEENT Exam Head: Present normocephalic and atraumatic Eye: Present EOMI and PERRL ENT: Present mucous membranes moist *Routine Neck Exam Neck: Present supple *Routine Respiratory Exam Respiratory: Absent rhonchi, wheezes or crackles *Routine Cardiovascular Exam Cardiovascular: Present tachycardia and irregularly irregular *Routine Abdominal Exam Abdominal: Present soft and normoactive bowel sounds; Absent tenderness *Routine Rectal Exam Rectal:: deferred *Routine Genitalia Exam Genitalia:: deferred *Routine Extremities Exam Extremities: Absent cyanosis, clubbing or edema *Routine Skin Exam Skin: Present intact; Absent cyanosis *Routine Neurological Exam Neurological: Present alert, oriented X3 and moving all extremities; Absent altered mental status Assessment and Plan *Assessment and plan (1) Atrial flutter with rapid ventricular response: Status: Acute Category: Medical Code(s): I48.92 - Unspecified atrial flutter (2) CAD (coronary artery disease): Status: Acute Qualifiers: Associated angina: with unstable angina Coronary Disease-Associated Artery/Lesion type: [place] artery [place] vs. transplanted heart: [place] heart Qualified Code(s): I25.110 - Atherosclerotic heart disease of [place] coronary artery with unstable angina pectoris Category: Medical Code(s): I25.10 - Atherosclerotic heart disease of [place] coronary artery without angina pectoris (3) Hypertensive heart disease: Status: Acute Qualifiers: Heart failure presence: without heart failure Qualified Code(s): I11.9 - Hypertensive heart disease without heart failure Category: Medical Code(s): I11.9 - Hypertensive heart disease without heart failure (4) Obesity (BMI 30.0-34.9): Status: Acute Category: Medical Code(s): E66.811 - Obesity, class 1 (5) Hypercholesteremia: Status: Chronic Category: Medical Code(s): E78.00 - Pure hypercholesterolemia, unspecified (6) Depression: Status: Chronic Category: Medical Code(s): F32.A - Depression, unspecified (7) Anxiety disorder: Status: Chronic Category: Medical Code(s): F41.9 - Anxiety disorder, unspecified (8) Chest pain: Status: Acute Qualifiers: Chest pain type: precordial pain Qualified Code(s): R07.2 - Precordial pain Category: Medical Code(s): R07.9 - Chest pain, unspecified Plan 54-year-old male who presented with sensation of heart racing and shortness of breath. Found to be in a flutter with RVR. Treated with adenosine in the ED. Started on diltiazem drip and esmolol. Discussed case with ER physician, request admission for further management of tachyarrhythmia. I decided to admit to stepdown level of care due to necessity for diltiazem and esmolol drip. Necessitating inpatient care. Problems addressed as follows: A-flutter with RVR Hypertensive heart disease - Cardiology consulted, appreciate their recommendations. Recommend continuing diltiazem drip for now along with esmolol drip. Anticipate patient will convert on his own. Initiated on Lovenox 1 mg/kg twice daily for anticoagulation. Will transition to oral prior to discharge - TSH 2.8 - A1C pending - CTPA obtained on arrival, negative for PE per my review. No focal airspace disease either. History of CAD. NSTEMI - Troponin 0.09 on presentation. Consistent with type II from supply/demand mismatch. Plan to obtain echo when patient's rhythm is converted to sinus or rate is consistently controlled - Lipid panel ordered for the morning. CV, CMP, magnesium ordered for the morning TOM versus CKD -Creatinine 1.4, BUN 16. Suspect this is his baseline. Potassium 3.7, sodium 134. Repeat CBC, CMP, magnesium ordered for the morning -Liver enzymes mildly elevated with bilirubin 1.8, AST 125, ALT 136. Suspect secondary to hepatic congestion from his A-fib Obesity: Complicates all aspects of his care Full code Cardiac diet Therapeutic Lovenox
[2025-05-09 08:37] LABS: Free T4 (Free Thyroxine) 1.41 ng/dl (0.78-2.19)
[2025-05-09] MEDS: ESMOLOL HCL IN STERILE WATER 2,500 MG/250 ML PIGGYBACK 32.66 MG IV (08:41)
--- NOTE | 2025-05-09 08:53 | PC.NURSE ---
received report from eloisa rico
--- NOTE | 2025-05-09 09:06 | PC.NURSE ---
pt arrived to the floor via stretcher transported by myself from ER
[2025-05-09 09:09] LABS: Hepatitis C Ab Qual. W/ RFX NEGATIVE (Negative)
--- NOTE | 2025-05-09 09:20 | PC.NURSE ---
DR LEW AT BEDSIDE
--- NOTE | 2025-05-09 09:34 | PC.NURSE ---
PERRI US AT BEDSIDE
--- NOTE | 2025-05-09 09:39 | PC.NURSE ---
PERRI HIDALGO NOTIFIED OF PT HAVING 5 BEAT RUN OF [facility].
[2025-05-09] MEDS: ESMOLOL HCL 100 MG/10 ML VIAL 54 MG IV (10:19)
--- NOTE | 2025-05-09 11:07 | P.CONCA_ITS ---
History of Present Illness History of Present Illness Consult date: 05/09/25 Requesting physician: Chele Ackerman Consult reason: chest pain Chief complaint: A. flutter with RVR Additional Medical History:: 1. CAD A. Cardiac cath, 09/2016, LAD with 20 to 40% stenosis, circumflex with mild LI's, RCA vestigial and normal, EF 75%, LVEDP 15 mmHg. 2. Hypertension/hypertensive heart disease A. Recommend treatment with combo of CCB and BB. 3. Admission for atrial flutter with RVR, 05/09/2025 4. Abnormal EKG, 12/17/2021 with incomplete right bundle branch block, LVH History of present illness: 54-year-old white male presented to the emergency department for evaluation of chest pain, dizziness and shortness of breath that started 2 days prior. He reports onset being acute, right-sided, persistent, nonmodifiable and intermittently associated with sweating but no fever recently. No recent illness, vomiting or diarrhea. Initial EKG showed heart rate 198 bpm with no concerning ST segment elevation. It was felt the patient had SVT versus atrial fibs/flutter with tachycardia and patient was subsequently treated with adenosine 6 mg and then 12 mg which was well-tolerated. After consultation with Dr. Cowan patient was started on Lovenox as well as IV diltiazem. CT of the chest was obtained showing no evidence of pulmonary embolus. Due to poorly co ntrolled rate, additional medication of esmolol was started with improvement in rate control and patient's symptoms. He was subsequently admitted for further evaluation and treatment. At the time of my examination his heart rate is around 90 to 120 bpm with periods of short pauses and a brief episode of tachycardia that appears to be atrial flutter with aberrancy. Initial troponin was noted to be 0.09 x 2 and likely related to supply/demand mismatch. [facility] Disclaimer: The information contained in this section may have been updated after the patient was seen, as this information can be updated by other users. Medical History (Updated 05/09/25 @ 11:21 by ABEBA Post) History of back pain Family History (Updated 05/09/25 @ 09:41 by Lashon Soriano RN) No significant family history Social History (Updated 05/09/25 @ 09:57 by Lashon Soriano RN) Smoking Status: Smoker, status unknown tobacco type: cigarettes alcohol intake: never substance use type: denies use current occupational status: other Travel in the last 8 weeks?: None Have you lived/traveled outside [place] in past 30 days?: No Contact w/someone who lives/traveled outside US past 30 days?: No Exposure to someone with infectious disease in past 14 days?: No Do you have a fever (greater than 100.4 F or 38 C)?: No Have you tested positive for COVID-19?: No Exposed to someone with COVID-19 in past 14 days?: No Do you have a sore throat?: No Do you have a cough?: No Do you have any weakness?: No Do you have any diarrhea?: No Are you experiencing any unusual bleeding?: No Do you have any muscle aches/pain?: No Do you have any abdominal pain?: No Are you experiencing loss of taste or smell?: No Review of Systems Review of Systems Review of systems:: pertinent systems reviewed and negative unless documented below *Cardiovascular Cardiovascular: Reports chest pain, Reports dyspnea, Reports dyspnea on exertion and Reports rapid heart rate *Respiratory Respiratory: Reports dyspnea and Reports dyspnea on exertion Exam Data for Last 24 hours Vital signs and Labs for Last 24 Hours: Temp Pulse Resp BP Pulse Ox O2 Del Method 98.0 F 40 L 27 H 110/83 95 Room Air 05/09/25 10:06 05/09/25 10:06 05/09/25 10:06 05/09/25 10:06 05/09/25 10:06 05/09/25 11:03 Laboratory Results - last 24 hr 05/09/25 07:07: WBC 12.9 H, RBC 4.85, Hgb 14.5, Hct 43.8, MCV 90.3, MCH 29.9, MCHC 33.1, RDW 12.9, Plt Count 293, MPV 11.6 H, Neut % (Auto) 69.6, Lymph % (Auto) 21.7, [place] % (Auto) 6.6, Eos % (Auto) 0.8, Baso % (Auto) 0.7, Neut # (Auto) 9.0 H, Lymph # (Auto) 2.8, [place] # (Auto) 0.9, Eos # (Auto) 0.1, Baso # (Auto) 0.1, Sodium 134 L, Potassium 3.5, Chloride 96 L, Carbon Dioxide 25, Anion Gap 16.5 H, BUN 16, Creatinine 1.40 H, Estimated Creat Clear 94, Estimated GFR 53 L, Est GFR ( Amer) 64, Glucose 137 H, Calcium 9.5, Magnesium 2.0, Total Bilirubin 1.8 H, AST 125 H, ALT 136 H, Alkaline Phosphatase 71, Troponin I 0.09 H, Total Protein 8.4 H, Albumin 4.7, Globulin 3.7 H, Albumin/Globulin Ratio 1.3, Lipase 35, TSH 2.82, Free T4 1.41, Plasma/Serum Alcohol < 10, HCV Ab PAMELA w/Rflx PCR Qn Negative, HIV Ag/Ab Combo Qual Negative I & O for Last 24 hours: Intake & Output 05/06/25 05/07/25 05/08/25 05/09/25 11:59 11:59 11:59 11:59 Intake Total 60.532 / 60.532 Balance 60.532 / 60.532 Weight 241 lb 7 oz Constitutional Constitutional: no acute distress *Routine Respiratory Exam Respiratory: Present CTA bilaterally *Routine Cardiovascular Exam Cardiovascular: Present irregular rhythm; Absent murmur, gallop or rubs *Routine Extremities Exam Extremities: Absent edema *Routine Neurological Exam Neurological: Present alert, oriented X3 and CN II-XII intact Meds Home Medications and Allergies Home Medications ?Medication ?Instructions ?Recorded ?Confirmed ?Type No Known Home Medications 05/09/2504/22 History New Prescriptions to Start Prescriptions: Allergies Allergy/AdvReac Type Severity Reaction Status Date / Time tramadol (TRAMADOL) Allergy Unknown Hives Verified 05/09/25 09:31 Assessment and Plan *Assessment and plan (1) Atrial flutter with rapid ventricular response: Status: Acute Category: Medical Code(s): I48.92 - Unspecified atrial flutter (2) Elevated troponin: Status: Acute Category: Medical Code(s): R79.89 - Other specified abnormal findings of blood chemistry (3) CAD (coronary artery disease): Status: Acute Qualifiers: Coronary Disease-Associated Artery/Lesion type: [place] artery [place] vs. transplanted heart: [place] heart Associated angina: with unstable angina Qualified Code(s): I25.110 - Atherosclerotic heart disease of [place] coronary artery with unstable angina pectoris Category: Medical Code(s): I25.10 - Atherosclerotic heart disease of [place] coronary artery without angina pectoris (4) Hypertensive heart disease: Status: Acute Qualifiers: Heart failure presence: without heart failure Qualified Code(s): I11.9 - Hypertensive heart disease without heart failure Category: Medical Code(s): I11.9 - Hypertensive heart disease without heart failure Plan 1. Atrial flutter with RVR -Improving with combination of IV diltiazem and esmolol -on IV Lovenox which we will switch to oral anticoagulation prior to discharge -TSH normal 2. History of CAD with elevated troponin this admission -Likely due to supply/demand mismatch. -Recheck echo once patient's rhythm has converted -Check lipids and consider statin therapy 3. Hypertensive heart disease by previous cardiac cath 2016 -will likely need combo of CCB and BB 4. Mild elevated Cr at 1.4 5. Elevated LFTs, likely due to hepatic congestion from arrhythmia Continue IV diltiazem and esmolol and monitoring for conversion to sinus rhythm Continue Lovenox and switch to oral anticoagulation prior to discharge Check echo once patient has converted to sinus rhythm, if EF normal then we will schedule outpatient stress testing.
[2025-05-09 11:08] LABS: Troponin I 0.09 ng/ml (0.00-0.034)
[2025-05-09 11:40] LABS: Cholesterol 141 mg/dl (140-200); HDL Cholesterol 32 mg/dl (40-60); Triglycerides 125 mg/dl (30-150)
--- NOTE | 2025-05-09 12:44 | PC.NURSE ---
dr solorio at bedside
[2025-05-09] MEDS: ESMOLOL HCL IN STERILE WATER 2,500 MG/250 ML PIGGYBACK 65.32 MG IV (13:15)
[2025-05-09 13:52] LABS: Barbiturates Screen,Urine Negative ng/ml (<200); Benzodiazepines Screen,Urine Negative ng/ml (<200)
[2025-05-09 13:54] LABS: Methadone Screen,Urine Negative ng/ml (<300)
[2025-05-09 13:55] LABS: Opiate Screen,Urine Negative ng/ml (<300); Phencyclidine Screen,Urine Negative ng/ml (<25)
[2025-05-09 14:03] LABS: Troponin I 0.10 ng/ml (0.00-0.034)
--- NOTE | 2025-05-09 15:00 | CA_ITS ---
APPROVED REPORT EXAM: Comprehensive 2D, Doppler, and color-flow Echocardiogram Print Color Matcher: GAMALIEL Romero, RVS Ht: 6 ft 0 in Wt: 241lbs BSA: 2.31 BP: 110/82 mmHg Rhythm: Atrial Fibrillation Indications: afib w/ RVR, CP, CAD, HHD 2D Dimensions Left Atrium 3.38 cm LVEF (Visual) 35.00 % LA Volume 66.80 mL LA Volume Index 28.30 mL/m2 (M/F) 16-34 M-Mode Dimensions RVDd 2.18 cm (0.9-2.6) LA Diam 3.59 cm (1.9-4.0) LVDd 5.39 cm (3.5-5.7) LVDs 4.26 cm (3.5-5.7) IVSd 1.27 cm (0.6-1.1) PWd 1.13 cm (0.6-1.1) EF (Teich) 40.00% EPSs 1.05 cm FS 23.10% EDV (Teich) 149.90 mL TAPSE 1.97 (<1.7) ESV (Teich) 81.30 mL LV Diastology E Decel Time 150 (160-240 msec) E/A Ratio 4.53 MED A' 4.40 cm/s LAT A' 3.30 cm/s Aortic Valve ALIZA Index 1.20 cm2/m2 AoV Peak [place]. 103.0 (50-130 cm/s) AO Peak GR. 4.20 mmHg AO Mean GR. 2.10 (<5 mmHg) AO VTI 17.9 (18-25 cm) ALIZA (VTI) 2.83 (2.5-4.5 cm2) Mitral Valve MV A Velocity 26.0 (40-130 cm/s) E/A Ratio 4.53 Pulmonary Valve [place] End VMAX 168.0 cm/s Tricuspid Valve TR P. Velocity 217.00 cm/s RAP Estimate 10.00 mmHg RVSP 28.90 mmHg Left Ventricle The left ventricle is normal size. Left ventricular systolic function is moderately to severely reduced. There is increased left ventricular wall thickness. There is moderate to severe global hypokinesis present. The left ventricular diastolic function is indeterminate. LVEF is 30% Right Ventricle The right ventricle is normal size. The right ventricular systolic function is mildly reduced. Atria The left atrium is mildly dilated. The right atrium is mildly dilated. There is no color Doppler evidence of interatrial shunt. Aortic Valve The aortic valve is mildly thickened. There is no hemodynamically significant aortic valvular stenosis. Trace aortic regurgitation is present. Mitral Valve The mitral valve is normal in structure. No evidence of mitral valve stenosis. Mild mitral regurgitation is present. Tricuspid Valve The tricuspid valve leaflets are thin and pliable. Mild tricuspid regurgitation. RVSP is 20-25 mmHg. Pulmonic Valve The pulmonary valve is grossly normal in structure. Trace pulmonic valve regurgitation is present. Great Vessels The aortic root is normal in size. IVC is normal in size and collapses >50% with inspiration. Pericardium There is no pericardial effusion. Other Information Study Quality: Fair Conclusion Moderate to severe reduction in LV systolic function (LVEF 30%). Normal RV size with mild reduction in RV function. Biatrial dilation. Mild MR, mild TR. Electronically signed by : Karena Ramirez MD 05/10/2025 12:55:37
--- NOTE | 2025-05-09 15:03 | PC.NURSE ---
VASCULAR AWARE OF ECHO ORDERED ON PT
--- NOTE | 2025-05-09 15:10 | PC.NURSE ---
ECHO AT BEDSIDE
[2025-05-09] MEDS: dilTIAZem HCL 180MG CAP.ER.24H 180 MG PO (15:16)
[2025-05-09] MEDS: METOPROLOL TARTRATE 50MG TABLET 50 MG PO ×2 (15:16→20:06)
[2025-05-09] MEDS: FAMOTIDINE 20MG TABLET 20 MG PO (20:06)
[2025-05-09] MEDS: ACETAMINOPHEN 325MG TAB 650 MG PO (23:24)
[2025-05-10] VITALS (51 sets, daily range): BP systolic 93–164; BP diastolic 57–143; PULSE 71–153; RESP 12–23; TEMP 36.4–37; O2SAT 90–100; BMI 72.1; BMI 32.3
--- NOTE | 2025-05-10 00:27 | ECG_ITS ---
APPROVED REPORT Exam: Resting ECG HR:84 bpm ECG Measurements Heart Rate 84 AXES QRSd 116 QRS 17 QT 392 T -44 QTc 433 Conclusion ATRIAL FIBRILLATION INCOMPLETE RIGHT BUNDLE BRANCH BLOCK [90+ ms QRS DURATION, TERMINAL R IN V1/V2, 40+ ms S IN I/aVL/V4/V5/V6] PROBABLE LATERAL MYOCARDIAL INFARCTION , PROBABLY OLD [35 ms Q WAVE IN I/aVL/V5/V6] ST DEPRESSION, CONSIDER SUBENDOCARDIAL INJURY [0.1+ mV ST DEPRESSION] ABNORMAL ECG UNCONFIRMED REPORT Electronically signed by : Ruben Killian MD 05/10/2025 08:27:36
--- NOTE | 2025-05-10 00:30 | PC.NURSE ---
Noted rhythm change to patient cardiac monitoring at this time. Pt asleep on left side, asymptomatic. EKG obtained. Hospitalist informed and aware.
[2025-05-10 05:58] LABS: Hematocrit 37.7 % (42.0-52.0); Immature Granulocytes % 0.4 %; Mean Corpuscular HGB Conc 33.7 g/dL (31.8-35.4); Mean Corpuscular Hemoglobin 30.0 pg (27.0-31.2); Mean Corpuscular Volume 89.1 fl (80-94); Nucleated Red Blood Cells % 0 %; Platelet Count 215 K/mm3 (142-424); Red Blood Count 4.23 M/mm3 (4.60-6.20); Red Cell Distribution Width-SD 41.3 fL; White Blood Count 10.0 K/mm3 (4.8-10.8)
[2025-05-10 06:01] LABS: Hemoglobin 12.9 g/dL (14.1-18.0)
[2025-05-10 06:05] LABS: Alanine Aminotransferase 92 U/L (12-78); Albumin Level 3.5 g/dl (3.5-5.0); Albumin/Globulin Ratio 1.4 (1.1-1.8); Alkaline Phosphatase 65 U/L (38-126); Anion Gap 12.1 mEq/L (5-15); Aspartate Amino Transferase 56 U/L (17-59); Bilirubin,Total 1.5 mg/dl (0.2-1.3); Blood Urea Nitrogen 15 mg/dl (9-20); Calcium 8.7 mg/dl (8.4-10.2); Carbon Dioxide 21 mmol/L (22.0-30.0); Chloride 103 mmol/L (98-107); Creatinine Clearance Estimated 85 mL/min (50-200); Creatinine,Serum 1.10 mg/dl (0.66-1.25); Estimated Glomerular Filt Rate 70 ml/min (>60); GFR (African American) 85 ML/MIN (>60); Globulin 2.5 g/dL (1.3-3.2); Glucose 97 mg/dl (74-100); Magnesium 1.8 mg/dl (1.6-2.3); Potassium 4.1 mmoL/L (3.5-5.1); Sodium 132 mmol/L (136-145); Total Protein,Serum 6.0 g/dl (6.3-8.2)
--- NOTE | 2025-05-10 07:58 | PC.NURSE ---
Linus Youssef at bedside. Provider aware of patients heart rhythm at this time. New orders received. Refer to MAR. Continuation of care plan.
--- NOTE | 2025-05-10 08:10 | P.PN_ITS ---
Subjective Subjective Date: 05/10/25 Time: 08:10 Principal diagnosis: A. flutter with RVR Interval history: 54-year-old white male lying in bed in no acute distress. Heart rate is better controlled with predominant rate being less than 100 bpm. Patient is having what appears to be some wenckebach phenomenon during sleep. He does have a history of sleep apnea with CPAP use but has not used it in a year and a half due to his machine developing rust and has not had it replaced. Echocardiogram results pending with concern for reduced ejection fraction but difficult to assess due to chaotic rhythm. Exam Data for Last 24 hours Vital signs and Labs for Last 24 Hours: Temp Pulse Resp BP Pulse Ox O2 Del Method 98.1 F 108 H 18 110/85 100 Room Air 05/10/25 08:01 05/10/25 08:01 05/10/25 08:01 05/10/25 08:01 05/10/25 08:01 05/10/25 08:01 Laboratory Results - last 24 hr 05/09/25 07:07: Free T4 1.41, Plasma/Serum Alcohol < 10, HCV Ab PAMELA w/Rflx PCR Qn Negative, HIV Ag/Ab Combo Qual Negative 05/09/25 10:34: Troponin I 0.09 H, Triglycerides 125, Cholesterol 141, LDL Cholesterol Direct 58.40 L, VLDL Cholesterol 25, HDL Cholesterol 32 L, Cholesterol/HDL Ratio 4.4 H 05/09/25 13:21: Urine Opiates Screen Negative, Urine Methadone Screen Negative, Ur Barbituates Screen Negative, Ur Phencyclidine Scrn Negative, Ur Amphetamines Screen Not Reportable, U Benzodiazepines Scrn Negative, Urine Cocaine Screen Negative, U Marijuana (THC) Screen Positive H 05/09/25 13:32: Troponin I 0.10 H 05/10/25 04:45: WBC 10.0, RBC 4.23 L, Hgb 12.9 L D, Hct 37.7 L, MCV 89.1, MCH 30.0, MCHC 33.7, RDW 12.7, Plt Count 215 D, MPV 12.7 H, Neut % (Auto) 66.6, Lymph % (Auto) 24.0, [place] % (Auto) 6.7, Eos % (Auto) 1.5, Baso % (Auto) 0.8, [place] # (Auto) 6.7, Lymph # (Auto) 2.4, [place] # (Auto) 0.7, Eos # (Auto) 0.2, Baso # (Auto) 0.1, Sodium 132 L, Potassium 4.1, Chloride 103, Carbon Dioxide 21 L, Anion Gap 12.1, BUN 15, Creatinine 1.10 D, Estimated Creat Clear 85, Estimated GFR 70, Est GFR ( Amer) 85 D, Glucose 97 D, Calcium 8.7, Magnesium 1.8, Total Bilirubin 1.5 H, AST 56 D, ALT 92 H D, Alkaline Phosphatase 65, Total Protein 6.0 L D, Albumin 3.5 D, Globulin 2.5, Albumin/Globulin Ratio 1.4 I & O for Last 24 hours: Intake & Output 05/07/25 05/08/25 05/09/25 05/10/25 11:59 11:59 11:59 11:59 Intake Total 60.532 / 60.532 2014.896 / 2014.896 Output Total 1150 / 1150 Balance 60.532 / 60.532 864.896 / 864.896 Weight 241 lb 7 oz 531 lb 12.079 oz Constitutional Constitutional: no acute distress *Routine Respiratory Exam Respiratory: Present CTA bilaterally *Routine Cardiovascular Exam Cardiovascular: Present irregular rhythm Progress Note: A&P Assessment and plan (1) Atrial flutter with rapid ventricular response: Status: Acute (2) CAD (coronary artery disease): Status: Acute (3) Hypertensive heart disease: Status: Acute (4) Obesity (BMI 30.0-34.9): Status: Acute (5) Hypercholesteremia: Status: Chronic (6) Depression: Status: Chronic (7) Anxiety disorder: Status: Chronic (8) Chest pain: Status: Acute (9) ROMY (obstructive sleep apnea): Status: Acute Assessment and Plan Assessment and Plan for All Diagnoses:: 1. Atrial flutter with RVR -Improved on diltiazem and metoprolol -Hold lovenox this AM in case of need for LHC -TSH normal 2. History of CAD with elevated troponin this admission -Likely due to supply/demand mismatch. -Recheck echo once patient's rhythm has converted -Check lipids and consider statin therapy 3. Hypertensive heart disease by previous cardiac cath 2016 -will treat with combo of CCB and BB 4. Mild elevated Cr at 1.4 -resolved 5. Elevated LFTs, likely due to hepatic congestion from arrhythmia -improved 6. ROMY -untreated for the last year due to needing new machine 7. Dyslipidemia -LDL 58 with HDL 32 Echo results show EF 30%. Will send for [facility]. Discontinue diltiazem due to cardiomyopathy. Switch metoprolol to succinate 50 mg daily. Further recommendations to follow. Cardiac cath results: ANGIOGRAPHIC RESULTS The left main artery Normal The left anterior descending artery Has proximal 30% stenosis with mid vessel 20% stenosis. The LAD is unusually small caliber without focal stenosis. Large ramus intermedius has mid vessel 40% stenosis. The circumflex artery is a large dominant and otherwise widely patent The right coronary artery Is a vestigial and has a proximal 90% stenosis The [place] ventriculogram reveals Reduced to 40% with anterior wall hypokinesis The left ventricular end-diastolic pressure 30 mmHg IMPRESSION Coronary artery disease as described above Severe stenosis in a vestigial nondominant right coronary artery which is not appropriate for percutaneous revascularization due to the small nature of the vessel Reduced ejection fraction regional wall motion abnormality Elevated LVEDP PLAN 1. GDMT for LV dysfunction 2. Diuresis 3. Higher dose beta-blockers for better rate control 4. LDL less than 55 to proceed with high intensity statin 5. Avoidance of tobacco products 6. Risk factor modification 7. Official echocardiogram to make sure ejection fraction is not lower. If so consider LifeVest if appropriate Electronically signed by : Franky Cowan MD 05/10/2025 14:40:30 Will add entresto 24/26 mg BID Will start lasix 40 mg daily as needed/BP tolerates Will start spironolactone 25 mg daily Resume lovenox 1 mg/kg BID Recommend monitoring over the weekend due to significant arrhythmias (tachycardia and bradycardia with pauses). Consider HORACIO/Cardioversion next week.
[2025-05-10] MEDS: FAMOTIDINE 20MG TABLET 20 MG PO ×2 (08:31→21:48)
[2025-05-10] MEDS: METOPROLOL SUCCINATE XL 50MG TABLET 50 MG PO ×2 (08:31→21:47)
[2025-05-10] MEDS: dilTIAZem HCL 180MG CAP.ER.24H 180 MG PO (10:08)
[2025-05-10 11:14] LABS: Hemoglobin A1C 5.9 % (4.0-6.0)
--- NOTE | 2025-05-10 12:25 | PC.NURSE ---
Patients heart rate of 130-160's at this time. Patient is sitting on the side of bed and agitated. Patient states he is thirsty and hungry. Linus Youssef notified. Per Linus Youssef, discontinue PO Diltiazem ordered on OCT and patient will go down for a left heart cath today. Continuation of care plan.
--- NOTE | 2025-05-10 12:42 | IR_ITS ---
APPROVED REPORT Patient Location: Inpatient Monotype Caster: MARIA C Brady RT (R) PROCEDURES Left heart catheterization Left ventriculogram Selective coronary angiogram INDICATION Non-ST elevation myocardial infarction, Atrial fibrillation Informed consent was obtained prior to the procedure. COMPLICATIONS None Estimated Blood Loss: Less than 10 mls TECHNIQUE One percent lidocaine used to anesthetize the right anterior aspect of the wrist. The right radial artery was accessed via the Seldinger technique. A 6 [place] sheath was placed in the right radial artery. 2.5 mg of Verapamil, 800 mcg of nitroglycerin, 1mg Lidocaine and 5000 U Heparin were given through the arterial sheath. The JL3 catheter was also used to perform left heart catheterization, left ventriculogram and selective coronary angiogram. At the end of the procedure the sheath was removed good hemostasis was achieved using Traclet band, patient was transferred to the postop holding area in stable condition. ANGIOGRAPHIC RESULTS The left main artery Normal The left anterior descending artery Has proximal 30% stenosis with mid vessel 20% stenosis. The LAD is unusually small caliber without focal stenosis. Large ramus intermedius has mid vessel 40% stenosis. The circumflex artery is a large dominant and otherwise widely patent The circumflex artery Large ramus intermedius has mid vessel 40% stenosis. The circumflex artery is a large dominant and otherwise widely patent The right coronary artery Is a vestigial and has a proximal 90% stenosis The [place] ventriculogram reveals Reduced to 40% with anterior wall hypokinesis The left ventricular end-diastolic pressure 30 mmHg IMPRESSION Coronary artery disease as described above Severe stenosis in a vestigial nondominant right coronary artery which is not appropriate for percutaneous revascularization due to the small nature of the vessel Reduced ejection fraction regional wall motion abnormality Elevated LVEDP PLAN 1. GDMT for LV dysfunction 2. Diuresis 3. Higher dose beta-blockers for better rate control 4. LDL less than 55 to proceed with high intensity statin 5. Avoidance of tobacco products 6. Risk factor modification 7. Official echocardiogram to make sure ejection fraction is not lower. If so consider LifeVest if appropriate Electronically signed by : Franky Cowan MD 05/10/2025 14:40:30
--- NOTE | 2025-05-10 14:10 | PC.NURSE ---
Patient off unit to [facility]. Patient transferred by wheelchair with Cathlab staff.
[2025-05-10] MEDS: 0.9 % SODIUM CHLORIDE 500 ML 25 ML IV (14:32)
[2025-05-10] MEDS: NITROGLYCERIN 800MCG/8ML SYR (CATH LAB) 800 MCG IA (14:32)
[2025-05-10] MEDS: HEPARIN 1,000 UNITS/500ML NS (CATH LAB) 3000 UNIT IV (14:32)
[2025-05-10] MEDS: LIDOCAINE 1% 10ML MDV 10 ML IJ (14:32)
[2025-05-10] MEDS: METOPROLOL TARTRATE 5MG/5ML VIAL 5 MG IV (14:33)
[2025-05-10] MEDS: HEPARIN 1,000 UNITS/ML 10ML VIAL (CATH LAB) 5000 UNIT IV (14:33)
[2025-05-10] MEDS: VERAPAMIL 2.5MG/ML 2ML VIAL 2.5 MG IV (14:33)
[2025-05-10] MEDS: FENTANYL 100MCG/2ML VIAL 50 MCG IV (14:36)
[2025-05-10] MEDS: MIDAZOLAM HCL 1MG/ML 5ML VIAL 1 MG IV (14:36)
--- NOTE | 2025-05-10 14:45 | EXP.ACUTE.PN ---
Subjective *Date: 05/10/25 *Time: 20:58 Interval history: Still in A-fib but rate controlled less than 110. Off drips. Denies chest pain. Overall feeling better. No nausea or vomiting. Stable on room air Medical Exam Vital signs and Labs for Last 24 Hours: Vital Signs Temp Pulse Pulse Resp BP Pulse Ox O2 Del Method 05/10/25 14:37 84 20 90 L Room Air 05/10/25 12:58 Room Air 05/10/25 12:00 98.2 F 128 H 22 126/86 96 Room Air 05/10/25 12:00 97 H 05/10/25 11:00 Room Air 05/10/25 10:01 120 H 12 164/143 H 92 L Room Air 05/10/25 09:57 125 H 19 143/95 H 94 L Room Air 05/10/25 09:45 112 H 20 92 L Room Air 05/10/25 09:31 133 H 20 137/98 H 91 L Room Air 05/10/25 09:30 133 H 18 93 L Room Air 05/10/25 09:15 20 95 Room Air 05/10/25 09:01 101 H 20 127/88 96 Room Air 05/10/25 09:00 Room Air 05/10/25 08:50 122 H 22 93/78 L 100 Room Air 05/10/25 08:30 112 H 18 96 Room Air 05/10/25 08:15 97 H 12 120/90 95 Room Air 05/10/25 08:01 98.1 F 108 H 18 110/85 100 Room Air 05/10/25 08:00 125 H 05/10/25 08:00 110 H 96 Room Air 05/10/25 07:00 Room Air 05/10/25 06:01 95 H 18 98/73 L 92 L Room Air 05/10/25 05:10 86 18 120/76 96 Room Air 05/10/25 05:00 Room Air 05/10/25 04:01 92 H 18 97/65 L 95 Room Air 05/10/25 03:00 85 20 111/87 98 Room Air 05/10/25 03:00 Room Air 05/10/25 02:01 109/63 L 05/10/25 02:01 89 18 96 Room Air 05/10/25 01:05 115/99 H 05/10/25 01:04 86 19 94 L Room Air 05/10/25 01:00 Room Air 05/10/25 00:15 16 05/10/25 00:01 80 22 113/78 95 Room Air 05/10/25 00:00 84 05/10/25 00:00 89 22 95 05/09/25 23:26 19 127/83 100 Room Air 05/09/25 23:00 77 20 135/108 H 95 Room Air 05/09/25 23:00 Room Air 05/09/25 22:15 89 23 97 05/09/25 22:01 119/95 H 05/09/25 22:01 88 22 95 05/09/25 22:00 90 21 93 L Room Air 05/09/25 21:45 81 20 98 05/09/25 21:30 84 16 97 05/09/25 21:15 22 05/09/25 21:00 82 13 110/82 98 05/09/25 21:00 110/82 05/09/25 21:00 Room Air 05/09/25 20:45 80 14 116/97 H 99 05/09/25 20:39 78 12 118/87 92 L Room Air 05/09/25 20:01 86 17 108/79 L 94 L Room Air 05/09/25 20:00 Room Air 05/09/25 20:00 84 05/09/25 19:30 112 H 15 117/71 95 Room Air 05/09/25 19:01 53 L 17 119/66 93 L Room Air 05/09/25 18:49 Room Air 05/09/25 18:30 63 18 113/78 100 Room Air 05/09/25 18:00 82 13 109/75 L 95 Room Air 05/09/25 17:08 Room Air 05/09/25 16:46 61 18 120/80 95 Room Air 05/09/25 16:22 63 17 112/76 96 Room Air 05/09/25 16:01 98.0 F 82 14 141/92 H 97 Room Air 05/09/25 16:00 95 H 05/09/25 15:01 Room Air 05/09/25 14:53 82 16 128/87 96 Intake and Output 05/09/25 05/10/25 05/10/25 23:59 07:59 15:59 Intake Total 296.00 / 1377.428 544 / 544 Output Total 0 / 400 750 / 1000 250 / 1000 Balance 296.00 / 977.428 -206 / -456 -250 / -456 Intake: Intake, Oral Amount 240 / 740 500 / 500 Intake, Total IV Amount 56.00 / 637.428 44 / 44 dilTIAZem HCL 100 mg In 0.9 % 56.00 / 146.833 44 / 44 Sodium Chloride 100 ml @ 5 MG/ HR 5 mls/hr IV .Q20H [facility] Rx#: [id number] Output: Output, Urine Amount 0 / 400 750 / 1000 250 / 1000 Other: Number of Voids 1 Number of Unmeasured Voids 1 1 Number of Bowel Movements 1 1 Weight 109.514 kg 241.2 kg 108.153 kg Patient Weight 05/10/25 23:59 Weight 108.153 kg Laboratory Results - last 24 hr 05/09/25 13:21: Ur Amphetamines Screen Not Reportable 05/10/25 04:45: WBC 10.0, RBC 4.23 L, Hgb 12.9 L D, Hct 37.7 L, MCV 89.1, MCH 30.0, MCHC 33.7, RDW 12.7, Plt Count 215 D, MPV 12.7 H, Neut % (Auto) 66.6, Lymph % (Auto) 24.0, [place] % (Auto) 6.7, Eos % (Auto) 1.5, Baso % (Auto) 0.8, Neut # (Auto) 6.7, Lymph # (Auto) 2.4, [place] # (Auto) 0.7, Eos # (Auto) 0.2, Baso # (Auto) 0.1, Sodium 132 L, Potassium 4.1, Chloride 103, Carbon Dioxide 21 L, Anion Gap 12.1, BUN 15, Creatinine 1.10 D, Estimated Creat Clear 85, Estimated GFR 70, Est GFR ( Amer) 85 D, Glucose 97 D, Hemoglobin A1c 5.9, Calcium 8.7, Magnesium 1.8, Total Bilirubin 1.5 H, AST 56 D, ALT 92 H D, Alkaline Phosphatase 65, Total Protein 6.0 L D, Albumin 3.5 D, Globulin 2.5, Albumin/Globulin Ratio 1.4 I & O for Labs for Last 24 Hours: Intake & Output 05/07/25 05/08/25 05/09/2525 23:59 23:59 23:59 23:59 Intake Total 877.428 / 1377.428 544 / 544 Output Total 400 / 400 1000 / 1000 Balance 477.428 / 977.428 -456 / -456 Weight 109.514 kg 108.153 kg Constitutional: Present no acute distress, obese and cooperative Respiratory: Present normal respiratory effort; Absent rhonchi or wheezes Cardiac: Present Tachycardia Comment:: Irregularly irregular GI: Present normal bowel sounds; Absent tenderness Extremities: Present normal inspection and full ROM Skin: Present intact; Absent erythema Neuro: Present Grossly Intact, alert, awake, oriented x 3 and moves all extremities Assessment and Plan *Assessment and plan (1) Atrial flutter with rapid ventricular response: Status: Acute Category: Medical Code(s): I48.92 - Unspecified atrial flutter (2) Acute HFrEF (heart failure with reduced ejection fraction): Status: Acute Category: Medical Code(s): I50.21 - Acute systolic (congestive) heart failure (3) CAD (coronary artery disease): Status: Acute Qualifiers: Associated angina: with unstable angina Coronary Disease-Associated Artery/Lesion type: [place] artery [place] vs. transplanted heart: [place] heart Qualified Code(s): I25.110 - Atherosclerotic heart disease of [place] coronary artery with unstable angina pectoris Category: Medical Code(s): I25.10 - Atherosclerotic heart disease of [place] coronary artery without angina pectoris (4) Hypertensive heart disease: Status: Acute Qualifiers: Heart failure presence: without heart failure Qualified Code(s): I11.9 - Hypertensive heart disease without heart failure Category: Medical Code(s): I11.9 - Hypertensive heart disease without heart failure (5) Obesity (BMI 30.0-34.9): Status: Acute Category: Medical Code(s): E66.811 - Obesity, class 1 (6) Hypercholesteremia: Status: Chronic Category: Medical Code(s): E78.00 - Pure hypercholesterolemia, unspecified (7) Depression: Status: Chronic Category: Medical Code(s): F32.A - Depression, unspecified (8) Anxiety disorder: Status: Chronic Category: Medical Code(s): F41.9 - Anxiety disorder, unspecified (9) Chest pain: Status: Acute Qualifiers: Chest pain type: precordial pain Qualified Code(s): R07.2 - Precordial pain Category: Medical Code(s): R07.9 - Chest pain, unspecified Plan 54-year-old male who presented with sensation of heart racing and shortness of breath. Found to be in a flutter with RVR. Treated with adenosine in the ED. Started on diltiazem drip and esmolol. Discussed case with ER physician, request admission for further management of tachyarrhythmia. I decided to admit to stepdown level of care due to necessity for diltiazem and esmolol drip. Necessitating inpatient care. Heart rate showing improvement. On oral rate controlling medication today. Cardiology evaluated and taken for left heart cath due to reduced ejection fraction. Continues to require inpatient care overnight. Problems addressed as follows: A-flutter with RVR Hypertensive heart disease Acute HFrEF - Cardiology consulted, appreciate their recommendations. Transition to metoprolol succinate 50 mg twice daily. Tartrate 5 mg IV if needed every 6 hours for heart rate greater than 120. - Echo obtained today showing EF reduced at 30%. Normal RV size with reduced RV function. - Discontinue diltiazem due to heart failure - Continue Lovenox 1 mg/kg twice daily for anticoagulation. Will transition to oral prior to discharge - TSH 2.8 - A1C normal at 4.9 - CTPA obtained on arrival, negative for PE per my review. No focal airspace disease either. History of CAD. NSTEMI - Troponin 0.09 on presentation. Consistent with type II from supply/demand mismatch. - Due to reduced EF on echo, taken for left heart cath today. - Findings of severe stenosis and a vestigial nondominant right coronary artery. Not appropriate for percutaneous revascularization. Continue GDMT for LV dysfunction. Avoid tobacco products. Risk factor modification. - Consider LifeVest prior to discharge due to reduced ejection fraction of 30% - Repeat CBC, CMP, magnesium ordered for the morning TOM improving. Has a component of chronic kidney disease. Creatinine was 1.4 BUN 16 on arrival. Improved to creatinine 1.1, BUN 15, white count 10. Hemoglobin 12.9. Obesity: Complicates all aspects of his care Full code Cardiac diet Therapeutic Lovenox
--- NOTE | 2025-05-10 15:00 | PC.NURSE ---
Patient arrived back to ICU by stretcher. Patient accompanied by [facility] staff. Continuation of care plan.
[2025-05-10] MEDS: IOPAMIDOL-370 (76%);100ML BOTTLE 60 ML IV (15:07)
[2025-05-10] MEDS: ENOXAPARIN 120MG/0.8ML SYRINGE 110 MG SUBCUT (15:28)
--- NOTE | 2025-05-10 15:30 | PC.NURSE ---
2mL of air removed from Radialband at this time. Site clean, dry, and intact. Continuation of care plan.
--- NOTE | 2025-05-10 15:45 | PC.NURSE ---
2mL of air removed from Radialband at this time. Site clean, dry, and intact. Continuation of care plan.
--- NOTE | 2025-05-10 16:00 | PC.NURSE ---
2mL of air removed from Radialband at this time. Site clean, dry, and intact. Continuation of care plan.
--- NOTE | 2025-05-10 16:15 | PC.NURSE ---
2mL of air removed from Radialband at this time. Site clean, dry, and intact. Continuation of care plan.
[2025-05-10 16:34] LABS: C-Reactive Protein 47.2 mg/L (0-4)
--- NOTE | 2025-05-10 16:38 | PC.NURSE ---
2mL of air removed from Radialband at this time. Radialband removed at this time. Site clean, dry, and intact. Site cleaned and dressing applied. Gauze and tegaderm over site. Continuation of care plan.
[2025-05-10 18:31] LABS: Troponin I 0.06 ng/ml (0.00-0.034)
[2025-05-10] MEDS: SACUBITRIL/VALSARTAN 24-26MG TABLET 1 EACH PO (21:47)
[2025-05-11] VITALS: BP 130/82; PULSE 68; PULSE 70; RESP 12; TEMP 36.7; O2SAT 99
[2025-05-11 04:00] VITALS: BMI 31.2
--- NOTE | 2025-05-11 04:49 | PC.NURSE ---
Pt. is alert and orientated x 4. Pt. is on room air. Pt. was trasferred from the ICU to Med/sug this evening. Pt. was admitted for A-Fib R-R. (. Pt was on a diltiazem and Esmalol drip for the A-Fib R-R. Pt. came off the drips and heart rates more stable. Heart rate 220 upon admission. Pt. had heart cath 05/10/25. Pt. denies chest pain/ pressure. Denies any racing heart feeling. Heart cath no stents were placed. Right radial site was accessed for the cath. Right wrist has a gauze and tegaderm dressing in place. Dressing is clean, dry, intact. Pt. sleeping well this shift. Personal items and call nuñez in reach. Bed in low and locked positiion. safety measures in place.
[2025-05-11 07:27] LABS: Hematocrit 36.9 % (42.0-52.0); Hemoglobin 12.1 g/dL (14.1-18.0); Immature Granulocytes % 0.9 %; Mean Corpuscular HGB Conc 32.8 g/dL (31.8-35.4); Mean Corpuscular Hemoglobin 29.3 pg (27.0-31.2); Mean Corpuscular Volume 89.3 fl (80-94); Nucleated Red Blood Cells % 0 %; Platelet Count 222 K/mm3 (142-424); Red Blood Count 4.13 M/mm3 (4.60-6.20); Red Cell Distribution Width-SD 42.0 fL; White Blood Count 7.6 K/mm3 (4.8-10.8)
[2025-05-11 08:00] VITALS: PULSE 70
[2025-05-11 08:01] VITALS: BP 119/88; PULSE 71; RESP 16; TEMP 36.6; O2SAT 96
[2025-05-11 08:09] LABS: Albumin Level 3.7 g/dl (3.5-5.0); Chloride 102 mmol/L (98-107); Sodium 135 mmol/L (136-145)
[2025-05-11 08:10] LABS: Potassium 3.7 mmoL/L (3.5-5.1)
[2025-05-11 08:12] LABS: Alanine Aminotransferase 76 U/L (12-78); Albumin/Globulin Ratio 1.3 (1.1-1.8); Alkaline Phosphatase 65 U/L (38-126); Anion Gap 12.7 mEq/L (5-15); Aspartate Amino Transferase 47 U/L (17-59); Bilirubin,Total 0.9 mg/dl (0.2-1.3); Blood Urea Nitrogen 15 mg/dl (9-20); Carbon Dioxide 24 mmol/L (22.0-30.0); Creatinine Clearance Estimated 115 mL/min (50-200); Creatinine,Serum 1.10 mg/dl (0.66-1.25); Estimated Glomerular Filt Rate 70 ml/min (>60); GFR (African American) 85 ML/MIN (>60); Globulin 2.8 g/dL (1.3-3.2); Total Protein,Serum 6.5 g/dl (6.3-8.2)
[2025-05-11 08:13] LABS: Calcium 8.7 mg/dl (8.4-10.2); Glucose 109 mg/dl (74-100); Magnesium 2.1 mg/dl (1.6-2.3)
[2025-05-11] MEDS: FAMOTIDINE 20MG TABLET 20 MG PO (08:39)
[2025-05-11] MEDS: METOPROLOL SUCCINATE XL 50MG TABLET 50 MG PO (08:39)
[2025-05-11] MEDS: SACUBITRIL/VALSARTAN 24-26MG TABLET 1 EACH PO (08:39)
[2025-05-11] MEDS: SPIRONOLACTONE 25MG TABLET 25 MG PO (08:39)
[2025-05-11] MEDS: APIXABAN 5MG TABLET 5 MG PO (11:36)
[2025-05-11 12:00] VITALS: BP 119/88; PULSE 150; PULSE 70; RESP 18; TEMP 37.3; O2SAT 98
[2025-05-11] MEDS: METOPROLOL TARTRATE 5MG/5ML VIAL 5 MG IV (12:20)
--- NOTE | 2025-05-11 13:04 | EXP.DC.SUM ---
General Admission date:: 05/09/25 Discharge date: 05/11/25 HPI HPI HPI: Mr. Hilliard is a 54 yo M with HTN, obesity, who presents with chest pain and dizziness for ~2 days. Pt rates pain 6/10 and states it gets worse when he takes a deep breathe. On arrival, was found to be tachyarrhythmic. Heart rate was in the 200s. Also had onset of some right sided chest discomfort. Pain not better or worse with exertion. Having sweating as well. [place] short of breath but no oxygen requirement. Initial concern for SVT. Was administered adenosine 6 and then 12. Heart rate showed A-fib/a flutter with RVR. Was started on diltiazem drip. Cardiology consulted, recommended adding esmolol. Initial troponin 0.09. Creatinine 1.4. Medicine consulted for admission and further management of new onset A-fib with RVR. Admitted to stepdown for further care On my evaluation, patient is in mild distress. Heart rate doing better in the low 100s. States his chest feels somewhat better and does not have the same pressure. Hospital Course Hospital Course Hospital Course: 54-year-old male who presented with sensation of heart racing and shortness of breath. Found to be in a flutter with RVR. Treated with adenosine in the ED. Started on diltiazem drip and esmolol. Discussed case with ER physician, request admission for further management of tachyarrhythmia. I decided to admit to stepdown level of care due to necessity for diltiazem and esmolol drip. Necessitating inpatient care. Heart rate showing improvement. On oral rate controlling medication today. Cardiology evaluated and taken for left heart cath during admission. No stents placed. Discharged home with clear instructions on returning to the hospital. Will work on Gourmant as an outpatient. Tolerating GDMT. Problems addressed as follows: A-flutter with RVR Hypertensive heart disease Acute HFrEF - Cardiology consulted, appreciate their recommendations. Was initially treated with adenosine twice in the ER for what looked like SVT. Found to be in A-fib with RVR. Started on diltiazem and esmolol drips. Rate showed improvement. After echo obtained showing reduced EF, was transition to oral metoprolol. Avoiding calcium channel josé miguel at this time. Tolerating metoprolol succinate 50 mg twice daily. Initiated on Entresto 24/26 mg twice daily due to heart failure. Initiated spironolactone 25 mg daily. Initiate Eliquis 5 mg twice daily for stroke prophylaxis. Patient's TSH was 2.8, A1c 4.9. Close follow-up with cardiology in 1 week for further management as an outpatient. Feeling significantly better after obtaining rate control. History of CAD. NSTEMI - Troponin 0.09 on presentation. Consistent with type II from supply/demand mismatch. Due to reduced EF on echo, taken for left heart cath. Findings of severe stenosis and a vestigial nondominant right coronary artery. Not appropriate for percutaneous revascularization. Continue GDMT for LV dysfunction. Avoid tobacco products. Risk factor modification. Discussed risks and benefits of LifeVest use prior to discharge. Patient's EF found to be 30% on echo. Anticipated will probably improve with GDMT and rate control has likely secondary to A-fib above. Will work on LifeVest as an outpatient. TOM improving. Has a component of chronic kidney disease. Creatinine was 1.4 BUN 16 on arrival. Improved to baseline 1.1 with BUN of 15. Caution with nephrotoxins. Obesity: Complicates all aspects of his care Extensive discussion about patient's reduced ejection fraction, risk for arrhythmias, and benefits of LifeVest. Discussed waiting till Tuesday to have LifeVest placed versus discharging home understanding that is a risk of arrhythmia and working on LifeVest as an outpatient. Patient preferred not to stay in the hospital any longer and wanted to go home. Stated he would not do any exertional activity. Discussed following up with cardiology this coming week. Counseled on concerning symptoms necessitating return to ER for immediate evaluation. Patient stated understanding. After shared discussion, decision made to discharge home with treatment as above. Total time spent on discharge 38 minutes in counseling, documentation, chart review, and direct care with patient. Exam Data for Last 24 hours Vital signs and Labs for Last 24 Hours: Temp Pulse Resp BP Pulse Ox O2 Del Method 98.1 F 97 H 12 164/143 H 92 L Room Air 05/10/25 08:01 05/10/25 12:00 05/10/25 10:01 05/10/25 10:01 05/10/25 10:05/10/25 12:58 Laboratory Results - last 24 hr 05/09/25 13:21: Urine Opiates Screen Negative, Urine Methadone Screen Negative, Ur Barbituates Screen Negative, Ur Phencyclidine Scrn Negative, Ur Amphetamines Screen Not Reportable, U Benzodiazepines Scrn Negative, Urine Cocaine Screen Negative, U Marijuana (THC) Screen Positive H 05/09/25 13:32: Troponin I 0.10 H 05/10/25 04:45: WBC 10.0, RBC 4.23 L, Hgb 12.9 L D, Hct 37.7 L, MCV 89.1, MCH 30.0, MCHC 33.7, RDW 12.7, Plt Count 215 D, MPV 12.7 H, Neut % (Auto) 66.6, Lymph % (Auto) 24.0, [place] % (Auto) 6.7, Eos % (Auto) 1.5, Baso % (Auto) 0.8, Neut # (Auto) 6.7, Lymph # (Auto) 2.4, [place] # (Auto) 0.7, Eos # (Auto) 0.2, Baso # (Auto) 0.1, Sodium 132 L, Potassium 4.1, Chloride 103, Carbon Dioxide 21 L, Anion Gap 12.1, BUN 15, Creatinine 1.10 D, Estimated Creat Clear 85, Estimated GFR 70, Est GFR ( Amer) 85 D, Glucose 97 D, Hemoglobin A1c 5.9, Calcium 8.7, Magnesium 1.8, Total Bilirubin 1.5 H, AST 56 D, ALT 92 H D, Alkaline Phosphatase 65, Total Protein 6.0 L D, Albumin 3.5 D, Globulin 2.5, Albumin/Globulin Ratio 1.4 I & O for Last 24 hours: Intake & Output 05/07/25 05/08/25 05/09/25 05/10/25 23:59 23:59 23:59 23:59 Intake Total 877.428 / 1377.428 544 / 544 Output Total 400 / 400 750 / 750 Balance 477.428 / 977.428 -206 / -206 Weight 109.514 kg 241.2 kg Constitutional Constitutional: no acute distress, obese and cooperative *Routine HEENT Exam Head: Present normocephalic Eye: Present EOMI and PERRL ENT: Present mucous membranes moist Comments: numerous caries and broken front teeth *Routine Neck Exam Neck: Present supple; Absent lymphadenopathy *Routine Respiratory Exam Respiratory: Present CTA bilaterally and rhonchi; Absent wheezes or crackles *Routine Cardiovascular Exam Cardiovascular: Present irregularly irregular Comments: rate controlled *Routine Abdominal Exam Abdominal: Present soft and normoactive bowel sounds; Absent tenderness *Routine Rectal Exam Patient deferred: visual exam *Routine Exam Patient deferred: penile exam *Routine Extremities Exam Extremities: Absent cyanosis, clubbing or edema Comments: right radial access point with minimal bruising, no bleeding *Routine Skin Exam Skin: Present intact and warm; Absent rash *Routine Neurological Exam Neurological: Present alert, oriented X3 and moving all extremities; Absent altered mental status Results Data Completed and Pending Labs on day of discharge: Labs from last 24 hours 05/10/25 05/09/25 05/09/25 04:45 13:32 13:21 WBC 10.0 RBC 4.23 L Hgb 12.9 L D Hct 37.7 L MCV 89.1 MCH 30.0 MCHC 33.7 RDW 12.7 Plt Count 215 D MPV 12.7 H Neut % (Auto) 66.6 Lymph % (Auto) 24.0 [place] % (Auto) 6.7 Eos % (Auto) 1.5 Baso % (Auto) 0.8 Neut # (Auto) 6.7 Lymph # (Auto) 2.4 [place] # (Auto) 0.7 Eos # (Auto) 0.2 Baso # (Auto) 0.1 Sodium 132 L Potassium 4.1 Chloride 103 Carbon Dioxide 21 L Anion Gap 12.1 BUN 15 Creatinine 1.10 D Estimated Creat Clear 85 Estimated GFR 70 Est GFR ( Amer) 85 D Glucose 97 D Hemoglobin A1c 5.9 Calcium 8.7 Magnesium 1.8 Total Bilirubin 1.5 H AST 56 D ALT 92 H D Alkaline Phosphatase 65 Troponin I 0.10 H Total Protein 6.0 L D Albumin 3.5 D Globulin 2.5 Albumin/Globulin Ratio 1.4 Urine Opiates Screen Negative Urine Methadone Screen Negative Ur Barbituates Screen Negative Ur Phencyclidine Scrn Negative Ur Amphetamines Screen Not Reportable U Benzodiazepines Scrn Negative Urine Cocaine Screen Negative U Marijuana (THC) Screen Positive H DS: Diagnosis Discharge Diagnosis (1) Atrial flutter with rapid ventricular response: Status: Acute Code(s): I48.92 - Unspecified atrial flutter (2) CAD (coronary artery disease): Status: Acute Code(s): I25.10 - Atherosclerotic heart disease of [place] coronary artery without angina pectoris Qualifiers: Associated angina: with unstable angina Coronary Disease-Associated Artery/Lesion type: [place] artery [place] vs. transplanted heart: [place] heart Qualified Code(s): I25.110 - Atherosclerotic heart disease of [place] coronary artery with unstable angina pectoris (3) Hypertensive heart disease: Status: Acute Code(s): I11.9 - Hypertensive heart disease without heart failure Qualifiers: Heart failure presence: without heart failure Qualified Code(s): I11.9 - Hypertensive heart disease without heart failure (4) Obesity (BMI 30.0-34.9): Status: Acute Code(s): E66.811 - Obesity, class 1 (5) Hypercholesteremia: Status: Chronic Code(s): E78.00 - Pure hypercholesterolemia, unspecified (6) Depression: Status: Chronic Code(s): F32.A - Depression, unspecified (7) Anxiety disorder: Status: Chronic Code(s): F41.9 - Anxiety disorder, unspecified (8) Chest pain: Status: Acute Code(s): R07.9 - Chest pain, unspecified Qualifiers: Chest pain type: precordial pain Qualified Code(s): R07.2 - Precordial pain (9) ROMY (obstructive sleep apnea): Status: Acute Code(s): G47.33 - Obstructive sleep apnea (adult) (pediatric) (10) Acute HFrEF (heart failure with reduced ejection fraction): Status: Acute Code(s): I50.21 - Acute systolic (congestive) heart failure Meds Home Medications and Allergies Home Medications ?Medication ?Instructions ?Recorded ?Confirmed ?Type apixaban 5 mg tablet (Eliquis) 5 mg PO BID #60 tabs 05/11/25 Rx metoprolol succinate 50 mg 50 mg PO BID 30 days #60 tabs 05/11/25 Rx tablet,extended release 24 hr (Toprol XL) sacubitril 24 mg-valsartan 26 mg 1 tab PO BID 30 days #60 tabs 05/11/25 Rx tablet (Entresto) spironolactone 25 mg tablet 25 mg PO DAILY 30 days #30 tabs 05/11/25 Rx New Prescriptions to Start Prescriptions: apixaban [Eliquis] Chele Ackerman metoprolol succinate [Toprol XL] Chele Ackerman sacubitril-valsartan [Entresto] Chele Ackerman spironolactone Chele Ackerman Allergies Allergy/AdvReac Type Severity Reaction Status Date / Time tramadol (TRAMADOL) Allergy Unknown Hives Verified 05/09/25 09:31 Discharge Plan Disposition Patient Disposition: Home, Self-Care Condition: Fair Discharge Order Discharge Orders: Discharge Order (Routine); Ordered 05/11/25 Ordered By: Chele Ackerman Follow up Plan Follow up with: Gracia Sullivan APRN [Nurse Practitioner, Cardiology] - 05/16/25 2:15 pm Provider,Referral, [Primary Care Provider, Medical] - Enter time for follow up Prescriptions/Medication Reconciliation: New spironolactone 25 mg Tablet 25 mg PO DAILY 30 Days Qty: 30 0RF sacubitril-valsartan [Entresto] 24-26 mg Tablet 1 tab PO BID 30 Days Qty: 60 0RF metoprolol succinate [Toprol XL] 50 mg Tablet Extended Release 24 Hr 50 mg PO BID 30 Days Qty: 60 0RF Eliquis 5 mg tablet 5 mg PO BID Qty: 60 0RF Problem Reconciliation Problems Reviewed?: Yes Patient Discharge Instructions ACTIVITY: Continue current activity DIET: continue same diet Patient Instructions: DI for Cardiac Catheterization, DI for Atrial Fibrillation, DI for Surgical Site Infection, Stop Light Heart Failure Print Language: Irish Providers Primary Care Provider: Provider,Referral Admit Provider: Chele Ackerman Attending Provider: Chele Ackerman
--- NOTE | 2025-05-14 10:42 | SW/DCPLANNER ---
Spoke with on the phone. Patient's stated that he is at work. Patient's stated that they were able to get his new medicine picked up. Patient's stated that they have no concerns or questions at this time. Katelynn MCKEON Research Instructor
[2025-05-16 23:30] LABS: Amphetamine (GC/MS) >3000 ng/mL (Cutoff=500); Methamphetamine (GC/MS) >3000 ng/mL (Cutoff=500)
== END 2025-05-11 14:32 | disposition home or self-care (01) ==
LOC: ER 08:30 → ICU 05-10 06:07 → 2ND 05-11 09:19 → ICU 05-13 16:21
PROVIDERS: Internal Medicine; Physician Assistant; Admitting Provider Internal Medicine Adolescent Medicine; Emergency Provider Emergency Medicine; Visit Provider Internal Medicine Adolescent Medicine
PROC: 4A023N7 Measurement of Cardiac Sampling and Pressure, Left Heart, Percutaneous Approach (ICD-10-PCS; CPT 93452; principal; 2025-05-10 13:15)
DX: I48.92 Unspecified atrial flutter (principal); I25.110 Atherosclerotic heart disease of native coronary artery with unstable angina pectoris; I11.9 Hypertensive heart disease without heart failure; E66.811 Obesity, class 1; E78.00 Pure hypercholesterolemia, unspecified; F32.A Depression, unspecified; F41.9 Anxiety disorder, unspecified; G47.33 Obstructive sleep apnea (adult) (pediatric); I50.21 Acute systolic (congestive) heart failure; R59.9 Enlarged lymph nodes, unspecified; I45.10 Unspecified right bundle-branch block; N17.9 Acute kidney failure, unspecified; R79.89 Other specified abnormal findings of blood chemistry; F17.210 Nicotine dependence, cigarettes, uncomplicated; R74.01 Elevation of levels of liver transaminase levels; Z68.31 Body mass index [BMI] 31.0-31.9, adult; Z79.01 Long term (current) use of anticoagulants; Z79.899 Other long term (current) drug therapy; Z88.5 Allergy status to narcotic agent
CPT/HCPCS: 36415; 71275; 80053; 80061; 80307; 80320; 80324; 83036; 83690; 83735; 84439; 84443; 84484; 85025; 85651; 86140; 86803; 87389; 93005; 93306; 93458; 96365; 96366; 96372; 96375; 96376; 99152; 99285; C1725; C1769; G0378; J0153; J1200; J1644; J1650; J1805; J1806; J2003; J2250; J3010; J7040; Q9967

== ENCOUNTER 2025-05-21 09:05 | Outpatient (CLI) | payer OTHER, SELFPAY ==
--- OUTSIDE RECORDS SUMMARY | 2025-05-21 09:09 | XMS_ITS | Clinical Summary ---
Author Organization Healthcare Address [address] [place] [address] Care Team Providers Care Physical Science Technician Name Role Phone Jan Lara MD Primary Care Provider + [phone] Family History Medical History Relation Name Comments [...] of Treatment Not on file Care Teams Physical Science Technician Relationship Specialty Start Date End Date Jan Lara MD [address] [place] [address] PCP - General 01/02/21
--- OUTSIDE RECORDS SUMMARY | 2025-05-21 09:09 | XMS_ITS | Clinical Summary ---
Author Organization [facility] Address [address] [place] [address] Care Team Providers Care Chemistry Lab Instructor Name Role Phone Dave Pena PA-C Primary Care Provider [phone] Allergies Active Allergy Reactions Criticality Noted Date Comments Tramadol 03/16/2016 Medications spironolactone (ALDACTONE) 25 MG tablet 25 mg daily. 01/15/2016 Active VENTOLIN HFA 108 (90 BASE) MCG/ACT inhaler 1 puff 4 (four) times a day. 03/13/2016 Active ALPRAZolam (XANAX) 0.5 MG tablet 0.5 mg 3 (three) times a day as needed. 02/27/2016 Active atorvastatin (LIPITOR) 40 MG tablet 40 mg daily. 03/02/2016 Active carvedilol (COREG) 6.25 MG tablet 6.25 mg 2 (two) times a day with meals. 02/17/2016 Active doxycycline (VIBRAMYCIN) 100 MG capsule 03/13/2016 Acti ve escitalopram (LEXAPRO) 20 MG tablet 20 mg daily. 02/27/2016 Active gabapentin (NEURONTIN) 800 MG tablet 800 mg 3 (three) times a day. 03/12/2016 Active HYDROcodone-demond taminophen (NORCO) 10-325 MG per tablet 1 tablet every 4 (four) hours as needed. 03/06/2016 Active COMBIVENT RESPIMAT 20-100 MCG/ACT inhaler 1 puff 4 (four) times a day. 02/17/2016 Active lisinopril (PRINIVIL,ZESTR IL) 40 MG tablet 40 mg daily. 1/2 BID 01/15/2016 Active methocarbamol (ROBAXIN) 750 MG tablet 750 mg 3 (three) times a day. TID PRN FOR SPASM 02/13/2016 Active promethazine-de xtromethorphan (PROMETHAZINE-D M) 6.25-15 MG/5ML syrup 4 (four) times a day as needed. 03/13/2016 Active morphine (MS CONTIN) 15 MG 12 hr tablet 15 mg every night. 03/06/2016 Active NITROSTAT 0.[address] 0.4 mg under the tongue every 5 (five) minutes as needed. 03/09/2016 Active Social History Tobacco Use Types Packs/Day Years Used Date Smoking Tobacco: Passive Smo ke Exposure - Never Smoker Alcohol Use Standard Drinks/Week Comments No 0 (1 standard drink = 0.6 oz pur e alcohol) Abuse Screen Answer Date Recorded Unsafe at Home or Work/School Not on file Feels Threatened by Someone? Not on file 06/2023 Does Anyone Keep You from Co ntacting Others or Doint Things Outside the Home? Not on file 06/01/2023 Physical Sign of Abuse Present Not on file 1 Housing Stability Answer Date Recorded Current Living Arrangements Not on file 05/22 Potentially Unsafe Housing Conditions Not on abimael e 06/01/2023 Family and Community Support Answer Jefry e Recorded Help with Day-to-Day Activities Not on file 06/01/2023 Lonely or Isolated Not on file 06/01/2023 Employment Answer Date Recorded Do you want help finding or keeping work or a aldo b? Not on file 06/01/2023 Disabilities Answer Date Recorded Concentrating, Remembering, or Making Decisions Difficulty Not on file 06/01/2023 Doing Errands Independently Difficulty Not on fi le 06/01/2023 Education Answer Date Recorded Help with school or training? Not on file Preferred Language Not on file 06/01/2023 Sex and Gender Information Value Date Recorded Sex Assigned at Not on file Legal Sex Male 2:37 PM EDT Gender Identity Not on file Sexual Orientation Not on file Last Filed Vital Signs Vital Sign Reading Time Taken Comments Blood Pressure 129/90 03/16/2016 11:24 AM EDT Pulse 74 03/16/2016 11:24 AM EDT Temperature - - Respiratory Rate - - Oxygen Saturation - - Inhaled Oxygen Concentration - - Weight 116 kg (255 lb) 03/16/2016 11:23 AM EDT Height 180.3 cm (5' 11 ) 03/16/2016 11:23 AM EDT Body Mass Index 35.57 03/16/2016 11:23 AM EDT Plan of Treatment Health Maintenance Due Date Last Done Comments ANNUAL PHYSICAL 1971 HEPATITIS C SCREENING 1971 TDAP/TD VACCINES (1 - Tdap) 10/20/1990 COLOGUARD 10/20/2016 COLON CANCER SCREENING 5 YEAR SIGMOIDOSCOPY 10/20/2016 COLONOSCOPY 10/20/2016 COLORECTAL CANCER SCREENING 10/20/2016 CT COLONOGRAPHY 10/20/2016 FECAL OCCULT BLOOD TEST 10/20/2016 FIT Testing (1 year) 10/20/2016 Pneumococcal Vaccine 50+ (1 of 1 - PCV) 10/20/2021 ZOSTER VACCINE (1 of 2) 10/20/2021 INFLUENZA VACCINE 03/22/2025 Insurance [facility] Care Teams Chemistry Lab Instructor Relationship Specialty Start Date End Date Dave Pena PA-C [address] [facility] [address] [place] [address] PCP - General Physician Financial Legal Assistant 03/16/16
--- NOTE | 2025-05-21 09:30 | CA_ITS ---
APPROVED REPORT EXAM: Limited 2D Echocardiogram [facility] Administrator: Neena Liang, RCS, RVS Ht: 6 ft 0 in Wt: 233lbs BSA: 2.27 BP: 157/68 mmHg Indications: Ejection fraction check 2D Dimensions EF AP4 52.00 % GL Strain -14.3 % M-Mode Dimensions RVDd 2.40 cm (0.9-2.6) LVDd 5.18 cm (3.5-5.7) LVDs 2.82 cm (3.5-5.7) IVSd 1.49 cm (0.6-1.1) PWd 1.41 cm (0.6-1.1) EF (Teich) 60.00% FS 40.00% EDV (Teich) 128.40 mL ESV (Teich) 30.10 mL Other Information Study Quality: Technically Difficult Conclusion This is a limited TTE to evaluate for LV systolic function. Limited windows were obtained. Technically difficult study. The left ventricle is normal in size. There is increased LV wall thickness. There is mild global hypokinesis present. LVEF is 45%. When directly compared to recent TTE from 05/09/2025, the LV systolic function has now improved, but remains mildly reduced. Electronically signed by : Karena Ramirez MD 05/21/2025 13:16:58
== END 2025-05-21 23:59 | disposition home or self-care (01) ==
LOC: RT 09:06
PROVIDERS: Visit Provider Nurse Practitioner Family
DX: I50.21 Acute systolic (congestive) heart failure (principal); R93.1 Abnormal findings on diagnostic imaging of heart and coronary circulation
CPT/HCPCS: 93308